=== PATIENT | female | born 1960 | race Caucasian/White ===

== ENCOUNTER → 2017-01-23 | Outpatient (CLI) | payer OTHER ==
[~2017-01-23] MED LIST: ASPI-266 PO; CINN500T PO; CLON0.2T11 PO; COEN100C11 PO; Centrum Silver PO; DULO60CA44 PO; LABE200T24 PO; LISI40TA PO; MELA1CAP9 PO; METH500T3 PO; REDCAP2 PO; TAUR1000 PO; VITAMIN B PO
[2017-01-23 13:18] LABS: ALT/SGPT 64 U/L (12-78); AST/SGOT 40 U/L (15-37); BLOOD UREA NITROGEN 19 mg/dl (7-18); BUN/CREATININE RATIO 20.8 (10-20); CALCIUM 9.1 mg/dl (8.5-10.1); CARBON DIOXIDE 26 mmol/L (21-32); CHLORIDE 106 mmol/L (98-107); CREATININE 0.89 mg/dl (0.60-1.20); GLUCOSE 135 mg/dl (70-99); POTASSIUM 4.1 mmol/L (3.5-5.1); SODIUM 140 mmol/L (136-145)
[2017-01-23 13:35] LABS: ALB/GLOB RATIO 1.5 (0.9-2); ALKALINE PHOSPHATASE 111 U/L (45-117); CHOLESTEROL 240 mg/dl (0-200); CHOLESTEROL/HDL RATIO 4.6; HDL CHOLESTEROL 52 mg/dl; LDL CHOLESTEROL CALCULATED 155 mg/dl; TRIGLYCERIDES 165 mg/dl (0-150); VERY LOW DENSITY LIPOPROT CALC 33 mg/dl
[2017-01-23 14:26] LABS: ESTIMATED AVERAGE GLUCOSE 123 mg/dl; HA1C FLAG Normal (Normal)
== END | disposition home or self-care (01) ==
LOC: C.LABPBG 08:41
PROVIDERS: ATTEND Family Medicine
DX: E11.9 Type 2 diabetes mellitus without complications (principal)

== ENCOUNTER → 2017-04-20 | Outpatient (CLI) | payer OTHER ==
[2017-04-20 13:11] LABS: ALT/SGPT 70 U/L (12-78); AST/SGOT 40 U/L (15-37)
== END | disposition home or self-care (01) ==
LOC: C.LABPBG 11:13
PROVIDERS: ATTEND Nurse Practitioner Adult Health
DX: E78.5 Hyperlipidemia, unspecified (principal)

== ENCOUNTER → 2017-04-24 | Outpatient (CLI) | payer OTHER ==
[~2017-04-24] VITALS: Ht 168.9 cm; Wt 93.8 kg
[2017-04-24 14:01] VITALS: BP 113/73; PULSE 76; Ht 168.9 cm; Wt 93.8 kg
== END | disposition home or self-care (01) ==
LOC: C.NEUR 13:14
PROVIDERS: ATTEND Physician Assistant
DX: G47.33 Obstructive sleep apnea (adult) (pediatric) (principal)

== ENCOUNTER → 2017-04-24 | Outpatient (CLI) | payer OTHER ==
--- NOTE | 2017-05-04 16:12 | MAMMOGRAPHY REPORT ---
BILATERAL DIGITAL SCREENING MAMMOGRAM TOMOSYNTHESIS WITH CAD: 04/24/2017 CLINICAL HISTORY: Routine screening. Patient has no complaints. TECHNIQUE: Breast tomosynthesis in addition to standard 2D mammography was performed. Current study was also evaluated with a Computer Aided Detection (CAD) system. COMPARISON: Prior outside screen film mammograms dated 12/08/2006, 08/22/2004, 02/24/2003. BREAST COMPOSITION: There are scattered areas of fibroglandular density in both breasts. FINDINGS: No suspicious masses, calcifications, or areas of architectural distortion are noted in ei ther breast. There has been no significant interval change compared to prior exams. Scattered bilate ral benign-appearing calcifications are noted. Small cluster of punctate benign-appearing calcificat ions in the right lower inner quadrant are shown to be located within the skin on the tomosynthesis i mages and are consistent with benign dermal calcifications. IMPRESSION: ACR BI-RADS CATEGORY 2: BENIGN There is no mammographic evidence of malignancy. A 1 year screening mammogram is recommended. The pa tient will receive written notification of the results. Approximately 10% of breast cancers are not detected with mammography. A negative mammographic report should not delay biopsy if a clinically suggestive mass is present. Deja Fink M.D. ah/:05/04/2017 16:04:00 [employer]: Shelia GUADALUPE)(Fredrick), [facility] letter sent: Normal 1/2 BI-RADS Code: ACR BI-RADS Category 2: Benign
== END | disposition home or self-care (01) ==
LOC: C.MAMM 11:42
PROVIDERS: ATTEND Family Medicine
DX: Z12.31 Encounter for screening mammogram for malignant neoplasm of breast (principal)

== ENCOUNTER → 2017-10-27 | Outpatient (CLI) | payer OTHER ==
[2017-10-27 12:41] LABS: ALBUMIN 4.1 gm/dl (3.4-5.0); ALT/SGPT 42 U/L (12-78); BLOOD UREA NITROGEN 16 mg/dl (7-18); CALCIUM 9.6 mg/dl (8.5-10.1); CARBON DIOXIDE 27 mmol/L (21-32); CHOLESTEROL 178 mg/dl (0-200); CREATININE 1.01 mg/dl (0.60-1.20); GLUCOSE 147 mg/dl (70-99); POTASSIUM 4.1 mmol/L (3.5-5.1); SODIUM 138 mmol/L (136-145)
[2017-10-27 12:46] LABS: ALKALINE PHOSPHATASE 86 U/L (45-117); AST/SGOT 27 U/L (15-37); HEMOGLOBIN A1C 6.1 % (4.5-5.6); LDL CHOLESTEROL CALCULATED 98 mg/dl; TOTAL PROTEIN 6.7 gm/dl (6.4-8.2)
[2017-10-27 13:45] LABS: CREATININE RANDOM URINE 31.2 mg/dl
== END | disposition home or self-care (01) ==
LOC: C.LABPBG 08:30
PROVIDERS: ATTEND Family Medicine
DX: E11.9 Type 2 diabetes mellitus without complications (principal)

== ENCOUNTER → 2018-04-29 | Outpatient (CLI) | payer OTHER ==
[~2018-04-29] VITALS: Ht 168.9 cm; Wt 95.0 kg
[~2018-04-29] MED LIST changes: -LABE200T24 PO; +LABE200T5 PO
[2018-04-29 15:16] VITALS: BP 159/80; PULSE 82; Ht 168.9 cm; Wt 95.0 kg
== END | disposition home or self-care (01) ==
LOC: C.NEUR 14:08
PROVIDERS: ATTEND Physician Assistant
DX: G47.33 Obstructive sleep apnea (adult) (pediatric) (principal)

== ENCOUNTER 2022-03-23 20:00 | Observation (INO) ==
--- NOTE | 2022-03-23 20:12 | Emergency Department Note ---
History of Present Illness General Chief complaint: Stroke Alert Stated complaint: STROKE ALERT Source: patient, family and EMS Mode of arrival: EMS Limitations: no limitations History of Present Illness This patient is a 61-year-old female who is a history of hypertension and diabetes, comes in after having an episode of confusion that started about an hour and 15 minutes or so prior to arrival. This is per her mother. I talked to EMS prior to arrival they said she was very amnestic to any new memories. That is new. Besides that she was otherwise asymptomatic she is of a mild headache. She denies any focal numbness weakness no fall or trauma no fever chills no neck pain chest pain shortness of breath or abdominal pain. I did talk to paramedics prior to arrival her blood pressure was high although she has chronic high blood pressure. I did call a stroke alert. The patient denies any allergy except for Ceclor. Looking through the chart she has had CAT scan with contrast before. Blood sugar was checked on route and it was normal Home Medications Medication Instructions Recorded Confirmed Type coenzyme Q10 100 mg capsule 100 mg PO QAM cap 07/01/19 03/23/22 History chromium 200 mcg tablet 200 mcg PO QAM 11/09/19 03/23/22 History cinnamon bark 500 mg capsule 1,500 mg PO QAM cap 11/09/19 03/23/22 History (Cinnamon) CPAP Supplies #1 ea 07/26/20 03/23/22 Rx aspirin 81 mg tablet,delayed 81 mg PO QAM 11/20/20 03/23/22 History release (Adrien Low Dose Aspirin) dicyclomine 20 mg tablet 20 mg PO QAM tab 06/14/21 03/23/22 History hyoscyamine sulfate 0.125 mg tablet 0.125 mg PO DAILY PRN tab 06/14/21 03/23/22 History Amitiza 8 mcg capsule 8 mcg PO BID 90 Days #180 cap NS 08/27/21 03/23/22 Rx (lubiprostone) oxybutynin chloride 5 mg 5 mg PO QAM #90 tab 11/01/21 03/23/22 Rx tablet,extended release 24 hr spironolactone 50 mg tablet 25 mg PO QAM #90 tab 11/01/21 03/23/22 Rx clonidine 0.3 mg/24 hr weekly 1 patch TRANSDERMAL WEEKLY #12 ea 11/07/21 03/23/22 Rx transdermal patch empagliflozin 25 mg tablet 25 mg PO QAM #90 tab 12/13/21 03/23/22 Rx atorvastatin 40 mg tablet 40 mg PO HS #90 tab 12/23/21 03/23/22 Rx labetalol 200 mg tablet 600 mg PO BID #540 tab 12/23/21 03/23/22 Rx metformin 500 mg tablet,extended 500 mg PO QPM #90 tab 12/23/21 03/23/22 Rx release 24 hr alprazolam 0.5 mg tablet 0.5 mg PO QPM #90 tab 01/07/22 03/23/22 Rx duloxetine 60 mg capsule,delayed 60 mg PO QAM #90 cap 01/13/22 03/23/22 Rx release pantoprazole 40 mg tablet,delayed 40 mg PO DAILY #30 tab 02/07/22 03/23/22 Rx release (Protonix) lisinopril 40 mg tablet 40 mg PO QAM #90 tab 02/17/22 03/23/22 Rx Allergies Allergy/AdvReac Type Severity Reaction Status Date / Time chlorthalidone Allergy Intermediate Forceful Verified 03/23/22 20:12 urination and pain in legs. dulaglutide [From Trulicity] Allergy Intermediate "colitis Verified 03/23/22 20:12 attack" amlodipine Allergy Mild Rash Verified 03/23/22 20:12 latex Allergy Mild itchy Verified 03/23/22 20:12 cefaclor AdvReac Intermediate GI SYMPTOMS Verified 03/23/22 20:12 Past Med/Surg History Medical History Adrenal adenoma Under observation 19mm left adrenal nodule per December 2020 abdomen/pelvic CT scan Anemia Dyslipidemia Dysphagia Improved/relieved Following with GI, normal esophagus per EGD report 07/30/2021, gastritis biopsied/had esophageal stretching Hearing difficulty No hearing aids needed at this time Hepatitis, autoimmune In remission per pt since approx 2013, follows with [facility] History of CVA (cerebrovascular accident) (06/2019) Mild, no deficits--no neurologist Had some memory issues,/facial droop> went to therapy, no further issues Irritable bowel syndrome (IBS) Lumbar degenerative disc disease Lumbar spinal stenosis Obstructive sleep apnea CPAP Pulmonary emphysema (05/01/13) Renal cyst PRN f/u with [facility] Resistant hypertension Stress incontinence in female Type 2 diabetes mellitus Glucose controlled Surgical History History of appendectomy History of colonoscopy History of esophagogastroduodenoscopy (EGD) History of surgical removal of ganglion cyst History of tooth extraction History of wisdom tooth extraction S/P cholecystectomy (~1991) with appy S/P manipulation of deviated nasal septum (~1981) Family History Mother Cervical cancer Atrial fibrillation Breast cancer Hypertension Father Hypertension Brother Diabetes Kidney disease Myocardial infarction Hypertension Other No family history of adverse response to anesthesia Denies family history of Ovarian cancer Prostate cancer Colorectal cancer Social History Smoking Status: Former smoker Tobacco Type: Cigarettes Age Started Using Tobacco: 19; Age Quit Using Tobacco: 49; Cigarettes Per Day: vaps periodically; Second Hand Exposure: No; Hx Alcohol Use: Yes Alcohol Intake Frequency: Monthly or Less Hx Substance Use: No Preferred Language: Upper Sorbian Communication Ability: Effective Visual Impairment: No Limitations Hearing Ability: Hard of Hearing Pipe Racker Required: No Beliefs That Will Affect Care: None marital status: Single Current Living Situation: Family Current Living Situation Comment: Lives with mom current occupational status: employed Feels Safe at Home: Yes caffeine: Yes Dental Care, Regularly: Yes Physical Activity Frequency: 5-6 Times per Week Seatbelt Use: always Sunscreen Use: Yes Assistive Devices: CPAP and Glasses Review of Systems A total of 10 systems reviewed and were otherwise negative Physical Exam Vital Signs Vital Signs - 24 hr 03/23/22 20:30 03/23/22 20:37 03/23/22 20:40 Temperature 37.2 C 37.2 C Temperature Source Oral Oral Pulse Rate 97 H Pulse Rate [Apical] 99 H Pulse Rhythm Regular Pulse Rhythm [Apical] Regular Pulse Strength Normal Pulse Strength [Apical] Normal Respiratory Rate 18 18 Respiratory Effort / Characteristics Non-Labored Spontaneous Non-Labored Spontaneous Respiratory Depth Normal Normal Respiratory Pattern Regular Regular Blood Pressure 201/115 H Blood Pressure [Right Arm] 187/124 H Blood Pressure Mean 143 Blood Pressure Mean [Right Arm] 145 Blood Pressure Position Semi-fowlers Blood Pressure Position [Right Arm] Semi-fowlers Pulse Oximetry 94 94 94 Oxygen Delivery Method Room Air Room Air Room Air Oxygen Flow Rate 0 Sepsis Recent Fever Within 48 Hours No Sepsis New/Unexplained Change in Mental Status Yes Sepsis Action Taken by Nursing No Action Required 03/23/22 22:45 03/23/22 23:04 Temperature Temperature Source Pulse Rate Pulse Rate [Apical] 95 H 97 H Pulse Rhythm Pulse Rhythm [Apical] Regular Regular Pulse Strength Pulse Strength [Apical] Normal Normal Respiratory Rate 16 16 Respiratory Effort / Characteristics Non-Labored Spontaneous Non-Labored Spontaneous Respiratory Depth Normal Normal Respiratory Pattern Regular Regular Blood Pressure Blood Pressure [Right Arm] 204/119 H 171/129 H Blood Pressure Mean Blood Pressure Mean [Right Arm] 147 143 Blood Pressure Position Blood Pressure Position [Right Arm] Semi-fowlers Semi-fowlers Pulse Oximetry 96 96 Oxygen Delivery Method Room Air Room Air Oxygen Flow Rate Sepsis Recent Fever Within 48 Hours Sepsis New/Unexplained Change in Mental Status Sepsis Action Taken by Nursing General: Well developed well nourished middle-age female who is alert to person place and partial date. In no acute distress, breathing comfortably on room air. Normal speech. She does tell me she has memory issues. HEENT: Normal cephalic atraumatic. Pupils are equal round and reactive to light. Extraocular movements are intact. Oropharynx is pink with moist mucous membranes. No swelling of the mouth lips or tongue. Neck: Supple with a midline trachea. No meningeal signs or stiffness, no JVD or bruits. No Stridor. Chest: Clear to auscultation bilaterally. No wheezes or rhonchi. No increased work of breathing. Heart: Regular rate and rhythm without murmurs or gallops. Abdomen: Soft nontender, nondistended without rebound guarding or rigidity. Extremities: No cyanosis clubbing or edema. No calf tenderness or assymetry Spine/Back. Non tender to palpation. No CVA tenderness Skin: Good turgor without rashes. Neurologic exam: Cranial nerves two through 12 are intact. Motor and sensation are intact and symmetrical throughout. Course Administered Medications Nicardipine HCl 25 mg/ Sodium (Chloride) 250 mls @ 0 mls/hr IV .Q0M [facility]; Protocol Stop: 04/22/22 20:44 Last Titration: 03/23/22 21:26 Dose: 0 mg/hr, 0 mls/hr Documented by: [id number] Titration: 03/23/22 21:06 Dose: 2.5 mg/hr, 25 mls/hr Documented by: [id number] Admin: 03/23/22 20:54 Dose: 5 mg/hr, 50 mls/hr Documented by: [id number] Cosigned by: [id number] Discontinued Medications Ioversol (Optiray 320 125ml) 119 ml IV ONCE ONE Stop: 03/23/22 20:20 Last Admin: 03/23/22 20:19 Dose: 119 ml Documented by: [id number] Medical Decision Making Differential Diagnosis Stroke, TIA, transient global amnesia, hypertensive emergency, electrolyte or metabolic abnormality, anemia Medical Records Attestation: I reviewed the patient's medical records. Home Medications Current Medication List: was personally reviewed by me Laboratory Data Attestation: I reviewed the patient's lab results. Result diagrams: 03/23/22 20:33 03/23/22 20:33 Lab Results 03/23/22 03/23/22 03/23/22 Range/Units 20:20 20:29 20:33 WBC 10.71 (4.8-10.8) K/uL RBC 4.13 L (4.2-5.4) M/uL Hgb 13.7 (12.0-16.0) g/dL Hct 38.8 (37-47) % MCV 93.9 (80-100) fL MCH 33.2 (25-34) pg MCHC 35.3 (32-36) g/dL RDW Std Deviation 45.3 (36.4-46.3) fL RDW Coeff of Timoteo 13.2 (11.5-14.5) % Plt Count 359 (130-400) K/uL MPV 10.2 (7.4-10.4) fL Immature Gran % (Auto) 0.5 % Neut % (Auto) 71.4 % Lymph % (Auto) 19.4 % [place] % (Auto) 6.5 % Eos % (Auto) 1.9 % Baso % (Auto) 0.3 % Neut # (Auto) 7.65 H (1.4-6.5) K/uL Lymph # (Auto) 2.08 (1.2-3.4) K/uL [place] # (Auto) 0.70 H (0.11-0.59) K/uL Eos # (Auto) 0.20 (0-0.5) K/uL Baso # (Auto) 0.03 (0-0.2) K/uL Immature Gran # (Auto) 0.05 H (0.00-0.02) K/uL PT (9.0-12.0) Seconds INR (0.9-1.1) APTT (21.0-31.0) Seconds PTT Ratio Sodium (136-145) mmol/L Potassium (3.5-5.1) mmol/L Chloride (98-107) mmol/L Carbon Dioxide (21-32) mmol/L Anion Gap (3-11) BUN (6-23) mg/dl Creatinine (0.6-1.2) mg/dl Est Cr Clr Drug Dosing ml/min Est GFR ( Amer) ml/min Est GFR (Non-Af Amer) ml/min BUN/Creatinine Ratio (10-20) Glucose (70-99(Fasting)) mg/dl POC Glucose 167 H (70-99) mg/dl Lactate (0.4-2.0) mmol/L Calcium (8.5-10.1) mg/dl Magnesium (1.7-2.4) mg/dl Total Bilirubin (0.2-1.0) mg/dl AST (13-39) U/L ALT (7-52) U/L Alkaline Phosphatase (34-104) U/L Troponin I High Sens (0-14) pg/ml Total Protein (6.0-8.3) gm/dl Albumin (3.4-5.0) gm/dl Globulin (2.5-4.0) gm/dl Albumin/Globulin Ratio (0.9-2) Urine Color Yellow Urine Appearance Clear (Clear) Urine pH 7.5 (4.5-7.5) Ur Specific [place] 1.007 (1.000-1.030) Urine Protein Negative (Negative) Urine Glucose (UA) 2+ H (Negative) Urine Ketones Negative (Negative) Urine Blood Negative (Negative) Urine Nitrite Negative (Negative) Urine Bilirubin Negative (Negative) Urine Urobilinogen Negative (Negative) Ur Leukocyte Esterase Negative (Negative) SARS-CoV-2, RNA, NAAT (NEGATIVE) 03/23/22 03/23/22 03/23/22 Range/Units 20:33 20:33 20:35 WBC (4.8-10.8) K/uL RBC (4.2-5.4) M/uL Hgb (12.0-16.0) g/dL Hct (37-47) % MCV (80-100) fL MCH (25-34) pg MCHC (32-36) g/dL RDW Std Deviation (36.4-46.3) fL RDW Coeff of Timoteo (11.5-14.5) % Plt Count (130-400) K/uL MPV (7.4-10.4) fL Immature Gran % (Auto) % Neut % (Auto) % Lymph % (Auto) % [place] % (Auto) % Eos % (Auto) % Baso % (Auto) % Neut # (Auto) (1.4-6.5) K/uL Lymph # (Auto) (1.2-3.4) K/uL [place] # (Auto) (0.11-0.59) K/uL Eos # (Auto) (0-0.5) K/uL Baso # (Auto) (0-0.2) K/uL Immature Gran # (Auto) (0.00-0.02) K/uL PT 10.8 (9.0-12.0) Seconds INR 1.0 (0.9-1.1) APTT 30.1 (21.0-31.0) Seconds PTT Ratio 1.1 Sodium 135 L (136-145) mmol/L Potassium 3.9 (3.5-5.1) mmol/L Chloride 102 (98-107) mmol/L Carbon Dioxide 22 (21-32) mmol/L Anion Gap 11 (3-11) BUN 18 (6-23) mg/dl Creatinine 1.08 (0.6-1.2) mg/dl Est Cr Clr Drug Dosing 62.6 ml/min Est GFR ( Amer) 63.7 ml/min Est GFR (Non-Af Amer) 55.0 ml/min BUN/Creatinine Ratio 16.7 (10-20) Glucose 156 H (70-99(Fasting)) mg/dl POC Glucose (70-99) mg/dl Lactate (0.4-2.0) mmol/L Calcium 9.8 (8.5-10.1) mg/dl Magnesium 1.9 (1.7-2.4) mg/dl Total Bilirubin 1.0 (0.2-1.0) mg/dl AST 25 (13-39) U/L ALT 26 (7-52) U/L Alkaline Phosphatase 116 H (34-104) U/L Troponin I High Sens 24.4 H (0-14) pg/ml Total Protein 7.0 (6.0-8.3) gm/dl Albumin 4.9 (3.4-5.0) gm/dl Globulin 2.1 L (2.5-4.0) gm/dl Albumin/Globulin Ratio 2.3 H (0.9-2) Urine Color Urine Appearance (Clear) Urine pH (4.5-7.5) Ur Specific [place] (1.000-1.030) Urine Protein (Negative) Urine Glucose (UA) (Negative) Urine Ketones (Negative) Urine Blood (Negative) Urine Nitrite (Negative) Urine Bilirubin (Negative) Urine Urobilinogen (Negative) Ur Leukocyte Esterase (Negative) SARS-CoV-2, RNA, NAAT NEGATIVE (NEGATIVE) 03/23/22 Range/Units 20:43 WBC (4.8-10.8) K/uL RBC (4.2-5.4) M/uL Hgb (12.0-16.0) g/dL Hct (37-47) % MCV (80-100) fL MCH (25-34) pg MCHC (32-36) g/dL RDW Std Deviation (36.4-46.3) fL RDW Coeff of Timoteo (11.5-14.5) % Plt Count (130-400) K/uL MPV (7.4-10.4) fL Immature Gran % (Auto) % Neut % (Auto) % Lymph % (Auto) % [place] % (Auto) % Eos % (Auto) % Baso % (Auto) % Neut # (Auto) (1.4-6.5) K/uL Lymph # (Auto) (1.2-3.4) K/uL [place] # (Auto) (0.11-0.59) K/uL Eos # (Auto) (0-0.5) K/uL Baso # (Auto) (0-0.2) K/uL Immature Gran # (Auto) (0.00-0.02) K/uL PT (9.0-12.0) Seconds INR (0.9-1.1) APTT (21.0-31.0) Seconds PTT Ratio Sodium (136-145) mmol/L Potassium (3.5-5.1) mmol/L Chloride (98-107) mmol/L Carbon Dioxide (21-32) mmol/L Anion Gap (3-11) BUN (6-23) mg/dl Creatinine (0.6-1.2) mg/dl Est Cr Clr Drug Dosing ml/min Est GFR ( Amer) ml/min Est GFR (Non-Af Amer) ml/min BUN/Creatinine Ratio (10-20) Glucose (70-99(Fasting)) mg/dl POC Glucose (70-99) mg/dl Lactate 1.1 (0.4-2.0) mmol/L Calcium (8.5-10.1) mg/dl Magnesium (1.7-2.4) mg/dl Total Bilirubin (0.2-1.0) mg/dl AST (13-39) U/L ALT (7-52) U/L Alkaline Phosphatase (34-104) U/L Troponin I High Sens (0-14) pg/ml Total Protein (6.0-8.3) gm/dl Albumin (3.4-5.0) gm/dl Globulin (2.5-4.0) gm/dl Albumin/Globulin Ratio (0.9-2) Urine Color Urine Appearance (Clear) Urine pH (4.5-7.5) Ur Specific [place] (1.000-1.030) Urine Protein (Negative) Urine Glucose (UA) (Negative) Urine Ketones (Negative) Urine Blood (Negative) Urine Nitrite (Negative) Urine Bilirubin (Negative) Urine Urobilinogen (Negative) Ur Leukocyte Esterase (Negative) SARS-CoV-2, RNA, NAAT (NEGATIVE) Imaging Data Attestation: I personally reviewed and interpreted this imaging study as follows: My Impression: CT of the head no acute hemorrhage or mass-effect seen Radiologist's Impression: Stat readCT headno intracranial hemorrhage, mass-effect or edema. No skull fracture. Sinus and mastoid air cells are clear. CT angio headpatent intracranial circulation. No aneurysm. CTA Neck- No dissection, hemodynamically significant stenosis, or occlusion. ECG Data Attestation: I personally reviewed and interpreted this ECG as follows: Indication: + weakness MDM Narrative This patient comes in as described above she was a stroke alert. She has confusion to more recent events and short-term memory. She was taken straight to CAT scan where we did a CT of the head as well as CT of the head and neck. She was then placed back in room number a 1. I did see her on route to the CAT scan as EMS brought her in so I could get things going. I did talk to Dr. Leonarda brice from the stroke alert teleneurology team. She did not recommend TNK if it was just a memory issue but did recommend antiplatelet medication and admission for MRI vessel imaging and to monitor the blood pressure. Besides her memory issues she has no neurologic deficits. She has normal long-term memory. CAT scan of the head with CTA of the head neck were unremarkable. Her EKG she does not show any ischemic changes or ectopy. Her initial blood pressure was elevated at 201/115. I did talk to our pharmacist about nicardipine drip. The patient has a rash listed for amlodipine but she felt that it was safe to give her nicardipine. I started 5 mg/hg IV nicardipine as per protocol as a repeat blood pressure was 187/124. She is on 5 mg of nicardipine an hour. I did talk to the nurse and we want to lower the blood pressure slowly and just a little bit and see if she has any improvement. The patient's blood pressure did come down and was in the 140s systolic and I was concerned he was getting too low so we started backing off and actually turned off. She had no significant change in her symptoms so I do not think is likely hypertensive encephalopathy. The blood pressure did start coming back more elevated again and we talked to admitting team and they are going to address it as they have already seen her. She seems to remember more and is slowly improving here so I think this is most likely transient global amnesia however she will need a full neurologic work-up. She will be admitted for this. The [facility] saw her in the in ER Continuous gambling monitor: Orders placed in the EMR for continuous cardiac monitoring. Upon my interpretation the patient was noted to be in normal sinus rhythm rate of 90. Impression & Plan Acute focal neurological deficit, Amnesia, Acute confusion, Lab test negative for COVID-19 virus, Hypertension Discharge Plan Visit Data Chief Complaint: Stroke Alert Stated Complaint: STROKE ALERT ED Provider: Declan Braun Discharge Problem: Acute focal neurological deficit, Amnesia, Acute confusion, Lab test negative for COVID-19 virus, Hypertension Forms Stand Alone Forms: My [facility] Prescriptions Prescriptions: No Action lubiprostone [Amitiza] 8 mcg capsule 8 mcg PO BID 90 Days Qty: 180 RF: 3 spironolactone 50 mg tablet 25 mg PO QAM Qty: 90 RF: 3 oxybutynin chloride 5 mg tablet extended release 24hr 5 mg PO QAM Qty: 90 RF: 3 clonidine 0.3 mg/24 hr patch weekly 1 patch transdermal WEEKLY Qty: 12 RF: 3 atorvastatin 40 mg tablet 40 mg PO HS Qty: 90 RF: 3 labetalol 200 mg tablet 600 mg PO BID Qty: 540 RF: 1 metformin 500 mg tablet extended release 24 hr 500 mg PO QPM Qty: 90 RF: 3 alprazolam 0.5 mg tablet 0.5 mg PO QPM Qty: 90 RF: 0 duloxetine 60 mg capsule,delayed release(DR/EC) 60 mg PO QAM Qty: 90 RF: 3 pantoprazole [Protonix] 40 mg tablet,delayed release (DR/EC) 40 mg PO DAILY Qty: 30 RF: 2 lisinopril 40 mg tablet 40 mg PO QAM Qty: 90 RF: 1 aspirin [Adrien Low Dose Aspirin] 81 mg tablet,delayed release (DR/EC) 81 mg PO QAM RF: 0 Jardiance 25 mg tablet 25 mg PO QAM Qty: 90 RF: 1 (DME) CPAP Supplies Misc See Rx Instructions .ROUTE .MEDSUPPLY Qty: 1 RF: 0 hyoscyamine sulfate 0.125 mg tablet 0.125 mg PO DAILY PRN (Reason: spasms) RF: 0 dicyclomine 20 mg tablet 20 mg PO QAM RF: 0 coenzyme Q10 100 mg capsule 100 mg PO QAM RF: 0 cinnamon bark [Cinnamon] 500 mg capsule 1,500 mg PO QAM RF: 0 chromium 200 mcg tablet 200 mcg PO QAM RF: 0 Referrals Referrals: Ree Cotton DO [Primary Care Provider] - Discharge Problem: Hypertension Qualifiers: Hypertension type: unspecified Qualified Code(s): I10 - Essential (primary) hypertension
[2022-03-23] MEDS ORDERED: OPTIRAY 320 125ml IV ONE (20:19)
[2022-03-23] MEDS ORDERED: STAT IV Infusion **Titration per Protocol STA (20:34)
[2022-03-23] MEDS ORDERED: niCARdipine 25 MG in SODIUM CHLORIDE 0.9% 240 ML IV SCH (20:45)
[2022-03-23 20:49] LABS: Basophils # (auto) 0.03 K/uL (0-0.2); Basophils % (auto) 0.3 %; Eosinophils % (auto) 1.9 %; Hematocrit (blood only) 38.8 % (37-47); Hemoglobin 13.7 g/dL (12.0-16.0); Immature Granulocytes # (auto) 0.05 K/uL (0.00-0.02); Immature Granulocytes % (auto) 0.5 %; Lymphocytes # (auto) 2.08 K/uL (1.2-3.4); Lymphocytes % (auto) 19.4 %; Mean Corpuscular Hemoglobin 33.2 pg (25-34); Mean Corpuscular Hgb Conc 35.3 g/dL (32-36); Mean Corpuscular Volume 93.9 fL (80-100); Mean Platelet Volume 10.2 fL (7.4-10.4); Monocytes % (auto) 6.5 %; Neutrophils # (auto) 7.65 K/uL (1.4-6.5); Neutrophils % (auto) 71.4 %; Platelet Count 359 K/uL (130-400); RDW Coefficient of Variation 13.2 % (11.5-14.5); RDW Standard Deviation 45.3 fL (36.4-46.3); Red Blood Count 4.13 M/uL (4.2-5.4); White Blood Count 10.71 K/uL (4.8-10.8)
[2022-03-23 20:58] LABS: Partial Thromboplastin Ratio 1.1; Partial Thromboplastin Time 30.1 Seconds (21.0-31.0); Prothrombin Time 10.8 Seconds (9.0-12.0)
[2022-03-23 21:10] LABS: Albumin Globulin Ratio 2.3 (0.9-2); Albumin Level 4.9 gm/dl (3.4-5.0); BUN Creatinine Ratio 16.7 (10-20); Calcium 9.8 mg/dl (8.5-10.1); Creatinine Clr Calc Pharmacy 62.6 ml/min; Est GFR (African American) 63.7 ml/min; Globulin 2.1 gm/dl (2.5-4.0); Magnesium 1.9 mg/dl (1.7-2.4); Potassium 3.9 mmol/L (3.5-5.1)
[2022-03-23 21:13] LABS: Troponin I High Sensitivity 24.4 pg/ml (0-14)
[2022-03-23 21:19] LABS: Appearance Urine Clear (Clear); Bilirubin Urine Negative (Negative); Blood Urine Negative (Negative); Color Urine Yellow; Glucose Urine UA 2+ (Negative); Ketones Urine Negative (Negative); Leukocyte Esterase Urine Negative (Negative); Nitrite Urine Negative (Negative); Protein Urine Negative (Negative); Specific Gravity Urine 1.007 (1.000-1.030); Urobilinogen Urine Negative (Negative); pH Urine 7.5 (4.5-7.5)
--- NOTE | 2022-03-23 22:06 | History & Physical Report ---
Date of Service March 23, 2022 Assessment & Plan (1) AMS (altered mental status): Plan: Angie Kingsley is a 61-year-old female with past medical history of past CVA, anxiety/depression, IBS, hyperlipidemia, hypertension, DM 2, GERD, SAKINA, autoimmune hepatitis who presented to the ED via EMS due to AMS/confusion/forgetfulness. AMS/confusion/amnesia Work-up so far negative for acute stroke as evidenced by head CT and head/neck CTA She does take Xanax and multiple anticholinergic medications, which could cause altered mental status/confusion will hold these at this time Will order MRI brain to evaluate for any structural abnormalities and more definitively rule out stroke Per [facility] recommendations, will load with aspirin ordered 243 mg additional to her daily 81 mg Continue daily baby aspirin thereafter Continue atorvastatin BP control as below Lyme, Babesia, Anaplasma work-up ordered Neurology consulted Admit for observation to telemetry PT/OT/speech N.p.o. until dysphagia screen cleared Hypertension history of resistant hypertension with renal artery stenosis per chart review Continue home clonidine TD patch, labetalol twice daily, lisinopril daily, spironolactone daily Significantly hypertensive in ED requiring nicardipine drip, which was then discontinued due to blood pressure lowering too quickly After discontinuing nicardipine drip, patient's BP did start to increase Will monitor and administer as needed medications for blood pressure control if consistently above 220/110 DM2 Hold home diabetes regimen Basal and SSI insulin while admitted IBS Continue home Amitiza Will hold home hyoscyamine & dicyclomine Stress urinary incontinence Will hold home oxybutynin SAKINA CPAP at bedtime ordered GERD Continue home pantoprazole 40 mg daily DVT prophylaxis: SCDs, no chemoprophylaxis at this time until further stroke work-up completed Diet: N.p.o. until dysphagia screen cleared Dispo: Admit for observation to telemetry CODE STATUS: Full, patient able to verbalize as such when asked directly about her wishes her current mental status could indicate a need for rediscussion once improved (2) IBS (irritable bowel syndrome): (3) History of CVA (cerebrovascular accident): (4) Dyslipidemia: (5) Obstructive sleep apnea: (6) Resistant hypertension: (7) Type 2 diabetes mellitus: (8) Stress incontinence in female: History of Present Illness Primary Care Provider: Ree Cotton DO Angie Kingsley is a 61-year-old female with past medical history of past CVA, anxiety/depression, IBS, hyperlipidemia, hypertension, DM 2, GERD, SAKINA, autoimmune hepatitis who presented to the ED via EMS due to AMS/confusion/forgetfulness. About 1 hour and 15 minutes prior to ED arrival, patient's mother had noticed that patient was confused. She has been having difficulty with short term memory seemingly for this period of time. Patient denies headache, dizziness, vision changes, weakness, numbness,, fever, chills, neck pain, chest pain, nausea, vomiting, shortness of breath, cough, diarrhea, rashes, joint pains. Patient is unable to recall whether she had any falls at home, but states she does not have pain anywhere and there are no obviously visible signs of trauma. She cannot remember whether she lost consciousness. Her long-term memory is i ntact, she is able to discuss her medical history. However, she states she is unable to remember anything after [place] Day at this time. On arrival to ED, blood pressure was found to be elevated to 200s over 110s. She was started on nicardipine drip in ED for blood pressure control her blood pressure then decreased to 150s over 80s without any change in her mental status at which point nicardipine drip was discontinued. Patient had CT head, which showed no acute intracranial findings. CTA head and neck were also unremarkable. Lab work largely unremarkable, except for mildly elevated high- sensitivity troponin of 24.4. EKG did not show any obvious signs of ischemia and she consistently denies chest pain, palpitations, shortness of breath. ED provider spoke with [facility] who recommended loading patient with antiplatelet medication, did not recommend thrombolysis at this time. Recommended admission for MRI imaging and to monitor blood pressure. Upon my evaluation, patient remains very forgetful. States she does not remember anything since the beginning of March. Repeatedly asks what date it is, even within seconds of being told the information. She continues to deny headache, nausea, vomiting, dizziness, vision changes, chest pain, shortness of breath, palpitations, neuro deficits, weakness, rashes, joint pains, abdominal pain. Allergies Allergy/AdvReac Type Severity Reaction Status Date / Time chlorthalidone Allergy Intermediate Forceful Verified 03/23/22 20:12 urination and pain in legs. dulaglutide [From [facility]] Allergy Intermediate "colitis Verified 03/23/22 20:12 attack" amlodipine Allergy Mild Rash Verified 03/23/22 20:12 latex Allergy Mild itchy Verified 03/23/22 20:12 cefaclor AdvReac Intermediate GI SYMPTOMS Verified 03/23/22 20:12 Home Medications Medication Instructions Recorded Confirmed Type coenzyme Q10 100 mg capsule 100 mg PO QAM cap 07/01/19 03/23/22 History chromium 200 mcg tablet 200 mcg PO QAM 11/09/19 03/23/22 History cinnamon bark 500 mg capsule 1,500 mg PO QAM cap 11/09/19 03/23/22 History (Cinnamon) CPAP Supplies #1 ea 07/26/20 03/23/22 Rx aspirin 81 mg tablet,delayed 81 mg PO QAM 11/20/20 03/23/22 History release (Adrien Low Dose Aspirin) dicyclomine 20 mg tablet 20 mg PO QAM tab 06/14/21 03/23/22 History hyoscyamine sulfate 0.125 mg tablet 0.125 mg PO DAILY PRN tab 06/14/21 03/23/22 History Amitiza 8 mcg capsule 8 mcg PO BID 90 Days #180 cap NS 08/27/21 03/23/22 Rx (lubiprostone) oxybutynin chloride 5 mg 5 mg PO QAM #90 tab 11/01/21 03/23/22 Rx tablet,extended release 24 hr spironolactone 50 mg tablet 25 mg PO QAM #90 tab 11/01/21 03/23/22 Rx clonidine 0.3 mg/24 hr weekly 1 patch TRANSDERMAL WEEKLY #12 ea 11/07/21 03/23/22 Rx transdermal patch empagliflozin 25 mg tablet 25 mg PO QAM #90 tab 12/13/21 03/23/22 Rx atorvastatin 40 mg tablet 40 mg PO HS #90 tab 12/23/21 03/23/22 Rx labetalol 200 mg tablet 600 mg PO BID #540 tab 12/23/21 03/23/22 Rx metformin 500 mg tablet,extended 500 mg PO QPM #90 tab 12/23/21 03/23/22 Rx release 24 hr alprazolam 0.5 mg tablet 0.5 mg PO QPM #90 tab 01/07/22 03/23/22 Rx duloxetine 60 mg capsule,delayed 60 mg PO QAM #90 cap 01/13/22 03/23/22 Rx release pantoprazole 40 mg tablet,delayed 40 mg PO DAILY #30 tab 02/07/22 03/23/22 Rx release (Protonix) lisinopril 40 mg tablet 40 mg PO QAM #90 tab 02/17/22 03/23/22 Rx Past Med/Surg History Medical History Adrenal adenoma Under observation 19mm left adrenal nodule per December 2020 abdomen/pelvic CT scan Anemia Dyslipidemia Dysphagia Improved/relieved Following with GI, normal esophagus per EGD report 07/30/2021, gastritis biopsied/had esophageal stretching Hearing difficulty No hearing aids needed at this time Hepatitis, autoimmune In remission per pt since approx 2013, follows with [facility] History of CVA (cerebrovascular accident) (06/2019) Mild, no deficits--no neurologist Had some memory issues,/facial droop> went to therapy, no further issues Irritable bowel syndrome (IBS) Lumbar degenerative disc disease Lumbar spinal stenosis Obstructive sleep apnea CPAP Pulmonary emphysema (05/01/13) Renal cyst PRN f/u with [facility] Resistant hypertension Stress incontinence in female Type 2 diabetes mellitus Glucose controlled Surgical History History of appendectomy History of colonoscopy History of esophagogastroduodenoscopy (EGD) History of surgical removal of ganglion cyst History of tooth extraction History of wisdom tooth extraction S/P cholecystectomy (~1991) with appy S/P manipulation of deviated nasal septum (~1981) Family History Mother Cervical cancer Atrial fibrillation Breast cancer Hypertension Father Hypertension Brother Diabetes Kidney disease Myocardial infarction Hypertension Other No family history of adverse response to anesthesia Denies family history of Ovarian cancer Prostate cancer Colorectal cancer Social History Smoking Status: Former smoker Tobacco Type: Cigarettes Age Started Using Tobacco: 19; Age Quit Using Tobacco: 49; Cigarettes Per Day: vaps periodically; Second Hand Exposure: No; Hx Alcohol Use: Yes Alcohol Intake Frequency: Monthly or Less Hx Substance Use: No Preferred Language: Italian Communication Ability: Effective Visual Impairment: No Limitations Hearing Ability: Hard of Hearing Assistant Manager Retail Required: No Beliefs That Will Affect Care: None marital status: Single Current Living Situation: Family Current Living Situation Comment: Lives with mom current occupational status: employed Feels Safe at Home: Yes caffeine: Yes Dental Care, Regularly: Yes Physical Activity Frequency: 5-6 Times per Week Seatbelt Use: always Sunscreen Use: Yes Assistive Devices: CPAP and Glasses Review of Systems Review of Systems: All systems reviewed & are unremarkable except as noted in HPI & below Physical Exam Physical Exam: GENERAL: A&Ox1. NAD. HEENT: PERRL, EOMI. Moist mucous membranes. NECK: No JVD. No lymphadenopathy. CHEST/LUNGS: CTAB A/P. No crackles, wheezes, rales, rhonchi. HEART: RRR. No m/g/r. No carotid bruits. ABDOMEN: NT/ND, soft. BS+ x4. EXTREMITIES: No cyanosis, no clubbing, no edema SKIN: Warm and dry. No rashes or lesions. PSYCHIATRIC: No pressured speech, no hallucinations NEUROLOGIC: Confued. No FND. CN II-XII grossly intact. Results & Data Results & Data ([facility]) Vital Signs (Past 12 Hours) Vital Signs Temp Pulse Pulse Resp BP BP Pulse Ox 03/23/22 20:40 94 03/23/22 20:37 37.2 C 99 H 18 187/124 H 94 03/23/22 20:30 37.2 C 97 H 18 201/115 H 94 Supervising Physician Co-Signing Physician Notes Attending addendum: I have physically seen this patient, have supervised the medical residents activities, and agree with the H&P unless as otherwise noted. Assessment and Plan: Amnesia/confusion/headache/stroke alert- CT head negative, CTA head and neck negative. MRI brain ordered Stroke that tPA order set Consult PT/OT/speech/neurology Order echocardiogram Order hypercoagulable work-up Continue aspirin 81 mg for increased to full-strength 324 mg Elevated troponin- The patient will be admitted to telemetry for serial cardiac enzymes, serial EKG's, cardiac rhythm monitoring and a 2-D echocardiogram with Dopplers. Troponin 24.4 on admission Permissive hypertension Diabetes mellitus- Hold metformin, empagliflozin, cinnamon. Place on Accu-Cheks before meals and at bedtime with NovoLog coverage per scale Check hemoglobin A1c Hyperlipidemia- Continue atorvastatin 40 mg at bedtime Check a fasting lipid panel Remaining orders and notations as noted Resident Activity Tracking Resident Involvement: Resident Care Provided Care Provided: Adult Hospital Medicine
[2022-03-23] MEDS ORDERED: METOPROLOL TARTRATE 1 MG/ML VIAL IV STA (23:32)
[2022-03-24] MEDS ORDERED: GLUCOSE 40% GEL 15 GM TUBE PO PRN (00:56)
[2022-03-24] MEDS ORDERED: CARBOHYDRATES FOR HYPOGLYCEMIA PO PRN (00:56)
[2022-03-24] MEDS ORDERED: DC ALL PREVIOUSLY ORDERED DIABETES MEDS ONE (00:56)
[2022-03-24] MEDS ORDERED: GLUCOSE 10 TABS/TUBE PO PRN (00:56)
[2022-03-24] MEDS ORDERED: GLUCAGON FOR INJ 1 MG VIAL SQ PRN (00:56)
[2022-03-24] MEDS ORDERED: ACETAMINOPHEN 325 MG TAB PO PRN (00:56)
[2022-03-24] MEDS ORDERED: ONDANSETRON INJ 2 MG/ML 2 ML VIAL IV PRN (00:56)
[2022-03-24] MEDS ORDERED: DEXTROSE 50% 50 ML SYRINGE IV PRN (00:56)
[2022-03-24] MEDS ORDERED: PHARMACY GLYCEMIC MGMT CONSULT PRN (00:56)
[2022-03-24] MEDS ORDERED: SODIUM CHLORIDE 0.9% 1000ML 1,000 ML IV SCH (00:56)
[2022-03-24] MEDS ORDERED: PHARMACIST DISCHARGE MED REC CONSULT PRN (00:56)
[2022-03-24] MEDS ORDERED: ASPIRIN 81 MG CHEW PO ONE (01:36)
[2022-03-24 01:40] LABS: Lyme Ab IgG w/WB Rflx Negative (Negative); Lyme Ab IgM w/WB Rflx Negative (Negative)
[2022-03-24] MEDS ORDERED: GADOBUTROL 65ML VIAL IV ONE (01:49)
[2022-03-24] MEDS: SODIUM CHLORIDE 0.9% 1000ML 1,000 ML IV SCH ×2 (02:32→11:08)
--- NOTE | 2022-03-24 03:21 | Billing Data ---
Date of Service March 24, 2022 Coding Level of Care Code INT OBSERVATION CARE 70M LVL 3
[2022-03-24] MEDS: INSULIN ASPART PER UNIT SC SCH ×2 (06:01→16:38)
[2022-03-24 06:12] LABS: Basophils # (auto) 0.04 K/uL (0-0.2); Basophils % (auto) 0.4 %; Eosinophils # (auto) 0.12 K/uL (0-0.5); Eosinophils % (auto) 1.2 %; Hematocrit (blood only) 39.9 % (37-47); Hemoglobin 13.5 g/dL (12.0-16.0); Immature Granulocytes # (auto) 0.03 K/uL (0.00-0.02); Immature Granulocytes % (auto) 0.3 %; Lymphocytes # (auto) 2.88 K/uL (1.2-3.4); Lymphocytes % (auto) 28.5 %; Mean Corpuscular Hemoglobin 32.3 pg (25-34); Mean Corpuscular Hgb Conc 33.8 g/dL (32-36); Mean Corpuscular Volume 95.5 fL (80-100); Mean Platelet Volume 9.8 fL (7.4-10.4); Monocytes # (auto) 0.85 K/uL (0.11-0.59); Monocytes % (auto) 8.4 %; Neutrophils # (auto) 6.17 K/uL (1.4-6.5); Neutrophils % (auto) 61.2 %; Platelet Count 342 K/uL (130-400); RDW Coefficient of Variation 13.3 % (11.5-14.5); RDW Standard Deviation 46.3 fL (36.4-46.3); Red Blood Count 4.18 M/uL (4.2-5.4); White Blood Count 10.09 K/uL (4.8-10.8)
[2022-03-24 06:42] LABS: BUN Creatinine Ratio 16.8 (10-20); Chol HDL Ratio 3.3 (0-5); Creatinine Clr Calc Pharmacy 59.8 ml/min; Est GFR (African American) 60.3 ml/min; Potassium 4.1 mmol/L (3.5-5.1)
[2022-03-24 07:45] LABS: Estimated Average Glucose 180 mg/dl; Hemoglobin A1C 7.9 % (4.5-5.6)
--- NOTE | 2022-03-24 07:51 | CT Scan Report ---
CT angio head w con, CT head/brain wo con, CT angio neck with con CLINICAL HISTORY: Stroke Like Symptoms TECHNIQUE: Contiguous axial CT images of the head were acquired from the base of the skull to the colin chad without intravenous contrast administration. CT angiography of the head and neck was performed f ollowing intravenous administration of iodinated contrast. Coronal and sagittal MIPS were obtained fr om the axial data set and were submitted for review. Automated dose lowering techniques and/or adjus tment according to patient size were utilized for this examination. All measurements were calculated based on NASCET criteria. Comparison: None available at the time of this dictation. FINDINGS: CT head: There is no acute intracranial hemorrhage or evidence of acute territorial infarction. No sh ift of the midline structures, mass effect, or extra-axial abnormalities are shown. Biapical emphysema is seen. CTA Neck: A 3 vessel aortic arch is shown. There is no significant atherosclerotic plaque in the aor tic arch or the origins of the innominate, left common carotid, and left subclavian arteries. The c ommon carotid, external carotid, cervical segments of the internal carotid arteries, and the cervical segments of the vertebral arteries are patent without hemodynamically significant stenosis. The left vertebral artery is dominant. CTA Head: The anterior and posterior cerebral circulations are patent. No hemodynamically significan t stenosis, aneurysm, dissection, or arteriovenous malformation is shown. Atherosclerotic disease is noted. IMPRESSION: 1. No acute intracranial hemorrhage, evidence of acute territorial infarction, or other acute intrac ranial disease process. 2. No occlusion, hemodynamically significant stenosis, aneurysm, dissection, or arteriovenous malfor mation in the major intracranial arteries. 3. No occlusion, hemodynamically significant stenosis, or dissection in the major cervical arteries. Assessment of stenosis of the internal carotid arteries is based on NASCET criteria. ACT 112: Negative or not required by law. Electronically signed by: Leo Lawton M.D. 03/24/2022 7:48 AM
[2022-03-24] MEDS ORDERED: CHECK CLONIDINE PATCH PLACEMENT SCH (08:00)
[2022-03-24] MEDS ORDERED: ASPIRIN 81 MG ECTAB PO SCH (09:00)
[2022-03-24] MEDS ORDERED: SPIRONOLACTONE 25 MG TAB PO SCH (09:00)
[2022-03-24] MEDS ORDERED: PANTOprazole 40 MG TAB PO SCH (09:00)
[2022-03-24] MEDS ORDERED: lisinopril 40 MG TAB PO SCH (09:00)
[2022-03-24] MEDS ORDERED: DULoxetine HCL 60 MG CAP PO SCH (09:00)
[2022-03-24] MEDS ORDERED: LABETALOL HCL 300 MG TAB PO SCH (09:00)
[2022-03-24] MEDS ORDERED: LUBIPROSTONE 8 MCG CAP PO SCH (09:00)
[2022-03-24] MEDS ORDERED: CHROMIUM PO SCH (09:00)
[2022-03-24] MEDS ORDERED: NON-FORMULARY MEDICATION (Coenzyme Q10 100 mg capsule) PO SCH (09:00)
[2022-03-24] MEDS ORDERED: ENOXAPARIN INJ 40 MG/0.4 ML SYR SQ SCH (09:00)
[2022-03-24] MEDS ORDERED: INSULIN GLARGINE SOLOSTAR 100 UNITS/ML 3 ML PEN SC SCH (09:00)
[2022-03-24] MEDS ORDERED: DICYCLOMINE HCL 20 MG TAB PO SCH (09:00)
--- NOTE | 2022-03-24 09:13 | Magnetic Resonance Report ---
MR brain wo/w con CLINICAL HISTORY: stroke r/o TECHNIQUE: Multiplanar and multisequence MR images of the brain were obtained prior to and following administration of gadolinium contrast. Comparison: Comparison is made to MRI brain 11/23/2019 FINDINGS: No abnormal restricted diffusion is identified. The white matter is unremarkable. The ventricular sys tem is normal in appearance. No mass or abnormal enhancement is seen. There is no mass effect or midl ine shift. There is no evidence of acute intraparenchymal hemorrhage. No extra axial fluid collection s are seen. The corpus callosum, pituitary gland, and cerebellar tonsils appear grossly unremarkable. Flow voids of the major intracranial arterial vessels are identified. The imaged portions of the para nasal sinuses, mastoid air cells, and orbits are unremarkable. IMPRESSION: No acute abnormality is seen in particular there is no evidence of acute infarct. ACT 112: Negative or not required by law. Electronically signed by: Leo Lawton M.D. 03/24/2022 9:10 AM
--- NOTE | 2022-03-24 09:32 | Discharge Summary ---
Date of Service March 24, 2022 Admission HPI Per Admitting Provider Angie Kingsley is a 61-year-old female with past medical history of past CVA, anxiety/depression, IBS, hyperlipidemia, hypertension, DM 2, GERD, SAKINA, autoimmune hepatitis who presented to the ED via EMS due to AMS/confusion /forgetfulness. About 1 hour and 15 minutes prior to ED arrival, patient's mother had noticed that patient was confused. She has been having difficulty with short term memory seemingly for this period of time. Patient denies headache, dizziness, vision changes, weakness, numbness,, fever, chills, neck pain, chest pain, nausea, vomiting, shortness of breath, cough, diarrhea, rashes, joint pains. Patient is unable to recall whether she had any falls at home, but states she does not have pain anywhere and there are no obviously visible signs of trauma. She cannot remember whether she lost consciousness. Her long-term memory is intact, she is able to discuss her medical history. However, she states she is unable to remember anything after [place] at this time. On arrival to ED, blood pressure was found to be elevated to 200s over 110s. She was started on nicardipine drip in ED for blood pressure control her blood pressure then decreased to 150s over 80s without any change in her mental status at which point nicardipine drip was discontinued. Patient had CT head, which showed no acute intracranial findings. CTA head and neck were also unremarkable. Lab work largely unremarkable, except for mildly elevated high- sensitivity troponin of 24.4. EKG did not show any obvious signs of ischemia and she consistently denies chest pain, palpitations, shortness of breath. ED provider spoke with Marianne corderostroke who recommended loading patient with antiplatelet medication, did not recommend thrombolysis at this time. Recommended admission for MRI imaging and to monitor blood pressure. Upon my evaluation, patient remains very forgetful. States she does not remember anything since the beginning of March. Repeatedly asks what date it is, even within seconds of being told the information. She continues to deny headache, nausea, vomiting, dizziness, vision changes, chest pain, shortness of breath, palpitations, neuro deficits, weakness, rashes, joint pains, abdominal pain. Admission Exam Per Admitting Provider GENERAL: A&Ox1. NAD. HEENT: PERRL, EOMI. Moist mucous membranes. NECK: No JVD. No lymphadenopathy. CHEST/LUNGS: CTAB A/P. No crackles, wheezes, rales, rhonchi. HEART: RRR. No m/g/r. No carotid bruits. ABDOMEN: NT/ND, soft. BS+ x4. EXTREMITIES: No cyanosis, no clubbing, no edema SKIN: Warm and dry. No rashes or lesions. PSYCHIATRIC: No pressured speech, no hallucinations NEUROLOGIC: Confued. No FND. CN II-XII grossly intact. Principal Diagnosis Altered Mental Status Hypertensive Emergency Discharge Exam General: A&Ox3. NAD. Cooperative. HEENT: Atraumatic, normocephalic. Pulm: CTAB A&P. -wheezes, -rales, -rhonchi. Symmetrical chest rise. No increase work of breathing. No respiratory distress. Cardiac: RRR, -mrg. Radial pulses intact and symmetrical. No LE edema. Abdominal: soft, non-tender, non-distended, BS x 4 Skin: warm, dry, no rash Neurologic patellar DTR's 2+ bilat, sensation intact and PERRL, EOMI, accommodation nl, no face palsy, no dysarthria normal touch/pain/proprioception, CN's II-XI intact bilaterally, deep tendon reflexes 2+ bilaterally and moves all extremities Speech / Cognition: normal speech Motor/Sensory: no tremor and no pronator drift Gait: no ataxic gait Coordination: normal [id number]-jr-gcla test, normal qigq-si-tijm test and normal Romberg test Discharge Data Allergies Allergy/AdvReac Type Severity Reaction Status Date / Time chlorthalidone Allergy Intermediate Forceful Verified 03/23/22 20:12 urination and pain in legs. dulaglutide [From Trulicity] Allergy Intermediate "colitis Verified 03/23/22 2 0:12 attack" amlodipine Allergy Mild Rash Verified 03/23/22 20:12 latex Allergy Mild itchy Verified 03/23/22 20:12 cefaclor AdvReac Intermediate GI SYMPTOMS Verified 03/23/22 20:12 Consultations 03/23/22 21:28 ED Decision to Admit Stat 03/24/22 00:56 Consult Neurology Routine Ordered Studies 03/23/22 20:05 CT angio head w con Stat CT angio neck with con Stat CT head/brain wo con Stat 06/13/22 00:56 MR brain wo/w con Routine Hospital Course (1) AMS (altered mental status): Angie Kingsley is a 61-year-old female with past medical history of past CVA, anxiety/depression, IBS, hyperlipidemia, hypertension, DM 2, GERD, SAKINA, autoimmune hepatitis who was admitted to [facility] from 03/23 - 03/24 due to short-term memory loss in context of hypertensive emergency. Short-Term Memory Loss, Resolving Initially reported short-term memory loss x2 weeks but now only reports memory loss x12 hours. CT head, CTA head/neck, MRI brain negative for CVA. Suspect this is due to delirium 2/2 to medications (Xanax, anti-cholinergics) vs due to hypertensive emergency vs transient global amnesia. - tPA not administered - Neurology consulted - suspected that this is transient global amnesia, and did not recommend any new diagnostic steps or treatments - patient received Aspirin 324mg on presentation - continue with home baby Aspirin daily - Atorvastatin increased from 40mg to 80mg nightly (LDL 82) - can continue this dose on discharge - hold home Xanax, Dicyclomine, Hyoscyamine, and Oxybutynin on discharge - further management per PCP Lyme, Babesia, Anaplasma work-up ordered - pending Hypertensive Emergency, resolved; Elevated Troponin BP 200s/110s on presentation, with rapid improvement to 150s/80s after Nicardipine gtt, may be in part due to anxiety. With mildly elevated hsTroponin to 77 but no chest pain and EKG without ST/T changes --> suspect demand ischemia due to HTN. - Continue home clonidine TD patch, labetalol twice daily, lisinopril daily, spironolactone daily - further management per PCP T2DM A1c 7.9 while hospitalized. - SSI utilized while hospitalized - on discharge will increase Metformin to 1000mg daily - continue home Empagliflozin at same dose HLD - increased Atorvastatin to 80mg as stated above - recommend repeat lipid profile in 3 months - per PCP IBS Continue home Amitiza hold home hyoscyamine & dicyclomine as stated above Stress incontinence hold home oxybutynin as stated above SAKINA CPAP QHS GERD Continue home pantoprazole 40 mg daily (2) IBS (irritable bowel syndrome): (3) History of CVA (cerebrovascular accident): (4) Dyslipidemia: (5) Obstructive sleep apnea: (6) Resistant hypertension: (7) Type 2 diabetes mellitus: (8) Stress incontinence in female: Total Time Total Time Spent Total Time Spent (In Minutes): 30 minutes Discharge Plan Discharge Items Patient Disposition: Home - Self-Care Reason For Visit: AMS, FORGETFULNESS, CONFUSION Discharge Diagnosis: Short Term Memory Loss Hypertensive Emergency Activity: Per Instructions section Non-emergency contact: Primary Care Provider and Neurologist Call non-emergency contact if: you have any medication questions and your symptoms worsen Follow-up/Referrals: Ree Cotton DO [Primary Care Provider] - 03/28/22 2:20 am (please schedule f/u within 1 week of discharge) Diet: Carb Consistent or DM2 Addtl Attending Provider Instructions: You were admitted to [facility] from 03/23 to 03/24 for short- term memory loss and high blood pressure. Your blood pressure responded well to an IV blood pressure medication called Nicardipine. You had significant testing for the short term memory loss, and there is no evidence for stroke. Your memory loss improved throughout this short hospitalization. You will be discharged on 03/24 in improved, stable condition. For blood pressure, please continue all of your scheduled home medications. Your short term memory loss is most likely due to some of your home medications, as several of your home medications can cause short term memory loss. Stop taking the following medications: Xanax, Dicyclomine, Hyoscyamine, and Oxybutynin Additionally, your Atorvastatin was increased to 80mg nightly, as your LDL was 82 (slightly elevated) and you have a history of previous stroke. Please contin ue taking this medication at the increased dose after discharge. Lastly, we increased your Metformin to 1000mg nightly, as your A1c was a little high (7.8). Please follow up with your PCP for further dose changes. Please continue to take your other medications as scheduled. Please follow up with your PCP for further management. Pending Studies at Discharge: Yes Studies:: tick-borne panel (anaplasma, babesia, ehrlichia) Stand-Alone Forms: My [facility], Smoking Cessation Medications and DC Order Prescriptions: Continued lubiprostone [Amitiza] 8 mcg capsule 8 mcg PO BID 90 Days Qty: 180 RF: 3 spironolactone 50 mg tablet 25 mg PO QAM Qty: 90 RF: 3 clonidine 0.3 mg/24 hr patch weekly 1 patch transdermal WEEKLY Qty: 12 RF: 3 labetalol 200 mg tablet 600 mg PO BID Qty: 540 RF: 1 duloxetine 60 mg capsule,delayed release(DR/EC) 60 mg PO QAM Qty: 90 RF: 3 pantoprazole [Protonix] 40 mg tablet,delayed release (DR/EC) 40 mg PO DAILY Qty: 30 RF: 2 lisinopril 40 mg tablet 40 mg PO QAM Qty: 90 RF: 1 empagliflozin 25 mg tablet 25 mg PO QAM Qty: 90 RF: 1 (DME) [facility] See Rx Instructions .ROUTE .MEDSUPPLY Qty: 1 RF: 0 coenzyme Q10 100 mg capsule 100 mg PO QAM RF: 0 cinnamon bark [Cinnamon] 500 mg capsule 1,500 mg PO QAM RF: 0 chromium 200 mcg tablet 200 mcg PO QAM RF: 0 aspirin [Adrien Low Dose Aspirin] 81 mg tablet,delayed release (DR/EC) 81 mg PO QAM 30 Days Qty: 30 RF: 3 Changed atorvastatin 40 mg tablet 80 mg PO HS Qty: 30 RF: 3 metformin 500 mg tablet extended release 24 hr 1,000 mg PO QPM Qty: 90 RF: 3 Discontinued oxybutynin chloride 5 mg tablet extended release 24hr 5 mg PO QAM Qty: 90 RF: 3 alprazolam 0.5 mg tablet 0.5 mg PO QPM Qty: 90 RF: 0 hyoscyamine sulfate 0.125 mg tablet 0.125 mg PO DAILY PRN (Reason: spasms) RF: 0 dicyclomine 20 mg tablet 20 mg PO QAM RF: 0 Discharge Orders: Discharge Order (Routine); Ordered 03/24/22 Ordered By: Keivn Suresh Admission Data Admit Date/Time: 03/23/22 22:36 Attending Provider: Jero Tay Admit Provider: Brian Fernandez Primary Care Provider: Ree Cotton Supervising Physician Co-Signing Physician Notes Attending attestation Pt seen and examined in concert with Dr. Suresh. In agreement with the documented findings as noted in the resident documentation with any exceptions or additions as noted here. Patient reports continued improvement of memory symptoms today but history of chronicity is still variable - some very good detail about events but then espouses difficulty remembering other accompanying events. On specific questioning, patient reports non-daily use of alprazolam On examination, S1/S2 nl RRR no MCG. CTAB. Abd NT/ND BS+ve. CNII-XII grossly intact. Short-term memory loss, improving - neurology consult - increase statin. Infectious w/u pending. Reviewed concerns for polypharmacy as well as accidental overuse HTN emergency, resolved - continue home BP medications as noted T2DM - metformin increased w/ A1c of 7.9%. Continue empagliflozin Else see resident documentation as noted. Total attending time spent on this patients care on the day of discharge: 35 minutes. Resident Activity Tracking Resident Involvement: Resident Care Provided Care Provided: Adult Hospital Medicine
--- NOTE | 2022-03-24 09:48 | Neurology Consultation ---
Date of Consultation March 24, 2022 Assessment & Plan (1) Transient global amnesia: 61-year-old female with a probable episode of transient global amnesia occurring yesterday. Patient still has some residual amnesia for yesterday's events which is expected. She is currently neurologically intact. No evidence of acute or subacute stroke on recently completed MRI. No significant vascular lesion on CT angiography of the head and neck. The underlying pathophysiology of TGA is not completely understood. However, TGI is not felt to be due to cerebral ischemia, seizures, or migrainous phenomena. The condition is generally felt to be benign with low risk for recurrence. TGA is not predictive of dementia. Patient should continue with her usual cardiovascular risk modifying medication regimen. Additional neurological assessments are not needed at this time. History of Present Illness Reason for Consultation: amnesia Requesting Physician: Brian Fernandez MD Attending Physician: Jero Tay MD History of Present Illness The patient is a 61-year-old female with a chief complaint of amnesia. She had presented to the emergency department yesterday for further assessment of confusion beginning just over an hour prior to her evaluation. The patient recalls that she had been doing some yoga earlier that day. She has otherwise amnestic for the ensuing events but does have some recollection of her evaluation in the emergency department. The patient does take care of her mother who apparently noticed profound difficulty with short-term memory. She subsequently contacted emergency medical personnel who brought the patient to the emergency department for further evaluation and management. The patient does complain of a low-grade headache this morning. Otherwise, she does not have specific or focal complaints. She continues to have some residual amnesia for yesterday's events, but otherwise, her memory function has returned to normal today. She had an unremarkable CT angiogram of the head and neck including CT of the head. A follow-up brain MRI was negative for acute or subacute infarct or other significant pathology. No reported history of significant memory problems at baseline. She was evaluated by Dr. Montalvo, outpatient neurology assessment, in October 2019 for word finding difficulty and was found to have some minimal chronic microvascular ischemic change in the brain at that time, notably an area of increased T2 signal within the anterior limb of the left external capsule. This finding was present on her MRI in November 2019. I was able to identify this finding on her recent brain MRI as well. Allergies Allergy/AdvReac Type Severity Reaction Status Date / Time chlorthalidone Allergy Intermediate Forceful Verified 03/23/22 20:12 urination and pain in legs. dulaglutide [From Trulicity] Allergy Intermediate "colitis Verified 03/23/22 20:12 attack" amlodipine Allergy Mild Rash Verified 03/23/22 20:12 latex Allergy Mild itchy Verified 03/23/22 20:12 cefaclor AdvReac Intermediate GI SYMPTOMS Verified 03/23/22 20:12 Home Medications Medication Instructions Recorded Confirmed Type coenzyme Q10 100 mg capsule 100 mg PO QAM cap 07/01/19 03/23/22 History chromium 200 mcg tablet 200 mcg PO QAM 11/09/19 03/23/22 History cinnamon bark 500 mg capsule 1,500 mg PO QAM cap 11/09/19 03/23/22 History (Cinnamon) CPAP Supplies #1 ea 07/26/20 03/23/22 Rx aspirin 81 mg tablet,delayed 81 mg PO QAM 11/20/20 03/23/22 History release (Adrien Low Dose Aspirin) dicyclomine 20 mg tablet 20 mg PO QAM tab 06/14/21 03/23/22 History hyoscyamine sulfate 0.125 mg tablet 0.125 mg PO DAILY PRN tab 06/14/21 03/23/22 History Amitiza 8 mcg capsule 8 mcg PO BID 90 Days #180 cap NS 08/27/21 03/23/22 Rx (lubiprostone) oxybutynin chloride 5 mg 5 mg PO QAM #90 tab 11/01/21 03/23/22 Rx tablet,extended release 24 hr spironolactone 50 mg tablet 25 mg PO QAM #90 tab 11/01/21 03/23/22 Rx clonidine 0.3 mg/24 hr weekly 1 patch TRANSDERMAL WEEKLY #12 ea 11/07/21 03/23/22 Rx transdermal patch empagliflozin 25 mg tablet 25 mg PO QAM #90 tab 12/13/21 03/23/22 Rx atorvastatin 40 mg tablet 40 mg PO HS #90 tab 12/23/21 03/23/22 Rx labetalol 200 mg tablet 600 mg PO BID #540 tab 12/23/21 03/23/22 Rx metformin 500 mg tablet,extended 500 mg PO QPM #90 tab 03/14/22 06/12/22 Rx release 24 hr alprazolam 0.5 mg tablet 0.5 mg PO QPM #90 tab 01/07/22 03/23/22 Rx duloxetine 60 mg capsule,delayed 60 mg PO QAM #90 cap 01/13/22 03/23/22 Rx release pantoprazole 40 mg tablet,delayed 40 mg PO DAILY #30 tab 02/07/22 03/23/22 Rx release (Protonix) lisinopril 40 mg tablet 40 mg PO QAM #90 tab 02/17/22 03/23/22 Rx Patient History Medical History Adrenal adenoma Under observation 19mm left adrenal nodule per December 2020 abdomen/pelvic CT scan Anemia Dyslipidemia Dysphagia Improved/relieved Following with GI, normal esophagus per EGD report 07/30/2021, gastritis biopsied/had esophageal stretching Hearing difficulty No hearing aids needed at this time Hepatitis, autoimmune In remission per pt since approx 2013, follows with [facility] History of CVA (cerebrovascular accident) (06/2019) Mild, no deficits--no neurologist Had some memory issues,/facial droop> went to therapy, no further issues Irritable bowel syndrome (IBS) Lumbar degenerative disc disease Lumbar spinal stenosis Obstructive sleep apnea CPAP Pulmonary emphysema (05/01/13) Renal cyst PRN f/u with [facility] Resistant hypertension Stress incontinence in female Type 2 diabetes mellitus Glucose controlled Surgical History History of appendectomy History of colonoscopy History of esophagogastroduodenoscopy (EGD) History of surgical removal of ganglion cyst History of tooth extraction History of wisdom tooth extraction S/P cholecystectomy (~1991) with appy S/P manipulation of deviated nasal septum (~1981) Family History Mother Cervical cancer Atrial fibrillation Breast cancer Hypertension Father Hypertension Brother Diabetes Kidney disease Myocardial infarction Hypertension Other No family history of adverse response to anesthesia Denies family history of Ovarian cancer Prostate cancer Colorectal cancer Social History Smoking Status: Former smoker Tobacco Type: Cigarettes Age Started Using Tobacco: 19; Age Quit Using Tobacco: 49; Cigarettes Per Day: vaps periodically; Second Hand Exposure: No; Hx Alcohol Use: Yes Alcohol Intake Frequency: Monthly or Less Hx Substance Use: No Preferred Language: Maori Communication Ability: Effective Visual Impairment: No Limitations Hearing Ability: Hard of Hearing Drop [employer]ge Operator Required: No Beliefs That Will Affect Care: None marital status: Single Current Living Situation: Family Current Living Situation Comment: Lives with mom current occupational status: employed Feels Safe at Home: Yes caffeine: Yes Dental Care, Regularly: Yes Physical Activity Frequency: 5-6 Times per Week Seatbelt Use: always Sunscreen Use: Yes Assistive Devices: Cane, CPAP and Glasses Review of Systems Constitutional: no fever and no chills Eyes: no blind spots and no diplopia Ear, Nose, Mouth, Throat: no ear pain and no hearing loss Respiratory: no cough and no dyspnea Cardiovascular: no chest pain and no palpitations Gastrointestinal: no constipation and no diarrhea/loose stools Genitourinary: no urinary urgency and no urinary incontinence Musculoskeletal: no muscle weakness and no muscle atrophy Integumentary: no rash and no lesions Neurologic: as per Subjective / HPI Psychiatric: no behavioral changes, no depression, no abnormal sleep pattern and no anxiety Hematologic / Lymphatic: no easy bruising and no lymphadenopathy Exam (Neuro) Constitutional: well developed and well nourished; no acute distress Eyes: normal visual [place] by confrontation, PERRL, normal accommodation and EOM intact bilaterally; no fundoscopic abnormality, no nystagmus and no papilledema Cardiovascular: Vessels: normal carotid upstroke; no carotid bruit Neurologic: Oriented to:: Person, Place and Time Memory: Short Term Intact and Remote Intact Attention: Span Intact and Concentration Intact Language: Naming Objects and Repeating Phrases Speech Fluency: negative Dysarthria Speech Aphasia: negative Aphasia Fund of Knowledge: Current Events, Past History and Vocabulary Cranial Nerves: Normal II (Visual [place] full to confrontation, visual acuity normal), III, IV, (Pupils equal round reactive to light and accommodation, eye movements normal), V (Facial sensation intact), VII (There is no facial droop or weakness), VIII (Hearing intact), IX, X (Palate elevates to midline), XI (Shoulder shrug intact) and XII (Tongue protrudes to midline) Motor Strength: Normal Lower Extremities and Normal Upper Extremities; negative Pronator Drift Motor Tone: Normal Lower Extremities and Normal Upper Extremities Muscle Bulk/Involuntary Movements: No Involuntary Movements; negative Muscle Atrophy Sensation: Light Touch Intact, Pain/Temperature Intact, Vibration Intact and Proprioception Intact Coordination: Normal; negative Limited Balance, Dysdiadochokinesia, Finger-Nose Abnormal or Heel-Hernandez Abnormal Deep Tendon Reflexes: Rt Triceps: 2+, Lt Triceps: 2+, Rt Biceps: 2+, Lt Biceps: 2+, Rt Brachioradialis: 2+, Lt Brachioradialis: 2+, Rt Patellar: 2+, Lt Patellar: 2+, Rt Ankle: 2+ and Lt Ankle: 2+ Special Tests: negative Babinski Present Gait: Normal Station and Gait Results & Data ([facility]) Vital Signs (Past 12 Hours) Vital Signs Temp Pulse Pulse Resp BP BP BP 03/24/22 08:21 36.8 C 70 18 161/87 H 03/24/22 06:44 36.8 C 70 18 169/98 H 03/24/22 05:05 69 18 150/91 H 03/24/22 03:00 69 15 151/86 H 03/24/22 00:12 90 170/104 H 03/23/22 23:45 91 H 168/121 H 03/23/22 23:04 97 H 16 171/129 H 03/23/22 22:45 95 H 16 204/119 H Pulse Ox Pulse Ox 03/24/22 08:21 94 03/24/22 06:44 94 03/24/22 05:05 96 03/24/22 03:00 95 95 03/24/22 00:12 03/23/22 23:45 03/23/22 23:04 96 03/23/22 22:45 96 Laboratory Results WBC 10.09, hemoglobin 13.5, hematocrit 39.9, MCV 95.5, platelet count 342, sodium 139, potassium 4.1, BUN 19, creatinine 1.13, glucose 144, hemoglobin A1c 7.9, calcium 10.0, magnesium 1.9, AST 25, ALT 26, triglycerides 132, cholesterol 155, LDL 82, VLDL 26, HDL [address] of the head, CT angiography of the head and neck, and brain MRI are as described in history of present illness. I reviewed the images as well as the r adiologist's interpretation of these tests. An electrocardiogram reveals a normal sinus rhythm, 67 bpm. Coding Level of Care Code 89665 Initial Inpt Care Lvl 3 Diagnoses Transient global amnesia G45.4
--- NOTE | 2022-03-24 11:34 | Pharmacy Report ---
Pharmacy Glycemic Short Note 2 - Date of Service March 24, 2022 - Glycemic Short BSG Results (Last 24 hours): 03/23/22 03/23/22 03/24/22 20:29 20:33 05:50 Glucose 156 H 127 H POC Glucose 167 H 03/24/22 05:58 Glucose POC Glucose 144 H OUTPATIENT ANTIDIABETIC REGIMEN: * Jardiance 25 mg PO qAM * Metformin ER 500 mg PO qPM * HbA1c = 7.9% (03/24/22) ASSESSMENT: * 61 yo F admitted secondary to a possible stroke. Pharmacy has been consulted to assist with inpatient glycemic management. All imaging negative for acute CVA. Patient has passed dysphagia screen this AM so diet was advanced to T2DM. No other stressors at this time. * Fasting BSG this AM was 144 mg/dL. Patient was given 10 units of Lantus given NPO status. Started on Novolog based on weight/stress of 1. * Will trend BSGs throughout the day and adjust insulin as needed. PLAN FOR INPATIENT GLYCEMIC CONTROL: * Hold outpatient oral diabetes medications * Basal insulin * Lantus 10 units SQ qAM * Bolus insulin * NovoLog per scale ACHS or Q6hrs while NPO * Goal Range: Low 110 mg/dL - High 140 mg/dL * Correction Factor: 45 mg/dL/unit * Nutritional / Prandial insulin per carb ratio of 1 unit per 15 grams CHO consumed
--- NOTE | 2022-03-24 11:37 | Electrocardiogram Report ---
Test Reason : Blood Pressure : / mmHG Vent. Rate : 099 BPM Atrial Rate : 099 BPM P-R Int : 170 ms QRS Dur : 082 ms QT Int : 384 ms P-R-T Axes : 061 047 072 degrees QTc Int : 492 ms Poor data quality, interpretation may be adversely affected Normal sinus rhythm Nonspecific ST abnormality Prolonged QT Abnormal ECG When compared with ECG of 09-OCT-2021 12:31, Vent. rate has increased BY 39 BPM Non-specific change in ST segment in Inferior leads ST now depressed in Anterolateral leads Confirmed by Tavo Patel ([id number]) on 03/24/2022 11:37:47 AM Referred By: REFERRED SELF Confirmed By:Franko Patel
--- NOTE | 2022-03-24 11:43 | Electrocardiogram Report ---
Test Reason : Blood Pressure : / mmHG Vent. Rate : 067 BPM Atrial Rate : 067 BPM P-R Int : 182 ms QRS Dur : 084 ms QT Int : 466 ms P-R-T Axes : 067 045 082 degrees QTc Int : 492 ms Normal sinus rhythm Prolonged QT Abnormal ECG When compared with ECG of 23-MAR-2022 20:35, (unconfirmed) ST no longer depressed in Lateral leads Confirmed by Tavo Patel ([id number]) on 03/24/2022 11:43:11 AM Referred By: REFERRED SELF Confirmed By:Franko Patel
[2022-03-24] MEDS ORDERED: STROKE PATIENT DISCHARGE STA (12:06)
[2022-03-24] MEDS ORDERED: ATORVASTATIN 40 MG TAB PO SCH ×2 (21:00)
[2022-03-28] MEDS ORDERED: cloNIDine HCL 0.3 MG/24 HR TRANSDERM SYS TD SCH (09:00)
== END 2022-03-24 15:30 | disposition home or self-care (01) ==
LOC: ED 20:00 → EDINP 20:00 → SUATTDRO 22:36 → 1E 03-24 01:08

== ENCOUNTER 2022-09-22 10:44 | Inpatient (IN) ==
--- NOTE | 2022-08-27 15:51 | PAT Medication Instructions ---
Medication Instructions Date of Service August 27, 2022 Home Medications Medication Instructions Recorded CPAP Supplies #1 ea 07/26/20 Amitiza 8 mcg capsule 8 mcg PO BID IBS-C 90 days #180 08/27/21 (lubiprostone) caps spironolactone 50 mg tablet 25 mg PO QAM #90 tabs 11/01/21 aspirin 81 mg tablet,delayed 81 mg PO QAM 30 days #30 tabs 03/24/22 release (Adrien Low Dose Aspirin) atorvastatin 40 mg tablet 80 mg PO HS #30 tabs 03/24/22 dicyclomine 20 mg tablet 20 mg PO QAM PRN abdominal 03/28/22 discomfort #30 tabs empagliflozin 25 mg tablet 25 mg PO QAM #90 tabs 05/19/22 pantoprazole 40 mg tablet,delayed 40 mg PO BID gastritis and 05/29/22 release (Protonix) erosions #180 tabs labetalol 200 mg tablet 600 mg PO BID #540 tabs 06/20/22 lisinopril 40 mg tablet 40 mg PO QAM #90 tabs 07/30/22 coenzyme Q10 100 mg capsule 100 mg PO HS cinnamon bark 500 mg capsule (Cinnamon) 1,500 mg PO QAM Amitiza 8 mcg capsule (lubiprostone) 8 mcg PO BID IBS-C spironolactone 50 mg tablet 25 mg PO QAM aspirin 81 mg tablet,delayed release (Adrien Low Dose Aspirin) 81 mg PO QAM atorvastatin 40 mg tablet 80 mg PO HS dicyclomine 20 mg tablet 20 mg PO QAM PRN abdominal discomfort metformin 500 mg tablet,extended release 24 hr 500 mg PO HS empagliflozin 25 mg tablet 25 mg PO QAM pantoprazole 40 mg tablet,delayed release (Protonix) 40 mg PO BID gastritis and erosions labetalol 200 mg tablet 600 mg PO BID lisinopril 40 mg tablet 40 mg PO QAM alprazolam 0.5 mg tablet 0.5 mg PO QPM PRN blood pressure spikes chromium 1,000 mcg tablet 500 mcg PO QAM clonidine 0.3 mg/24 hr weekly transdermal patch 1 patch transdermal Q7D docusate sodium 100 mg capsule (Colace) 100 mg PO UD PRN Constipation duloxetine 60 mg capsule,delayed release 60 mg PO QAM hyoscyamine sulfate 0.125 mg tablet 0.125 mg PO DAILY PRN IBD melatonin 5 mg tablet 5 mg PO HS PRN Sleep multivitamin 1 tab PO QAM oxybutynin chloride 5 mg tablet 5 mg PO BID PRN cystitis Continue as directed clonidine 0.3 mg/24 hr weekly transdermal patch 1 patch transdermal Q7D (avoid placement near surgery site prior to surgery) ASK your prescriber and surgeon aspirin 81 mg tablet,delayed release (Adrien Low Dose Aspirin) 81 mg PO QAM STOP taking 2 weeks before surgery (or as soon as possible if surgery is within 2 weeks) coenzyme Q10 100 mg capsule 100 mg PO HS cinnamon bark 500 mg capsule (Cinnamon) 1,500 mg PO QAM DO NOT take the morning of surgery Amitiza 8 mcg capsule (lubiprostone) 8 mcg PO BID IBS-C spironolactone 50 mg tablet 25 mg PO QAM dicyclomine 20 mg tablet 20 mg PO QAM PRN abdominal discomfort lisinopril 40 mg tablet 40 mg PO QAM chromium 1,000 mcg tablet 500 mcg PO QAM docusate sodium 100 mg capsule (Colace) 100 mg PO UD PRN Constipation hyoscyamine sulfate 0.125 mg tablet 0.125 mg PO DAILY PRN IBD multivitamin 1 tab PO QAM oxybutynin chloride 5 mg tablet 5 mg PO BID PRN cystitis Take morning of surgery With a small sip of water, OTHERWISE NOTHING TO EAT OR DRINK AFTER MIDNIGHT: pantoprazole 40 mg tablet,delayed release (Protonix) 40 mg PO BID gastritis and erosions labetalol 200 mg tablet 600 mg PO BID duloxetine 60 mg capsule,delayed release 60 mg PO QAM Take evening before surgery Amitiza 8 mcg capsule (lubiprostone) 8 mcg PO BID IBS-C atorvastatin 40 mg tablet 80 mg PO HS metformin 500 mg tablet,extended release 24 hr 500 mg PO HS pantoprazole 40 mg tablet,delayed release (Protonix) 40 mg PO BID gastritis and erosions labetalol 200 mg tablet 600 mg PO BID alprazolam 0.5 mg tablet 0.5 mg PO QPM PRN blood pressure spikes (if needed) docusate sodium 100 mg capsule (Colace) 100 mg PO UD PRN Constipation (if needed) hyoscyamine sulfate 0.125 mg tablet 0.125 mg PO DAILY PRN IBD (if needed) melatonin 5 mg tablet 5 mg PO HS PRN Sleep (if needed) oxybutynin chloride 5 mg tablet 5 mg PO BID PRN cystitis (if needed) STOP taking 3 days before surgery empagliflozin 25 mg tablet 25 mg PO QAM Other Notes If you have any questions please call us at [phone] or [phone] or [phone] or [phone]
--- NOTE | 2022-08-29 11:00 | Anesthesiology Consultation ---
Date of Service August 29, 2022 Assessment & Plan (1) Encounter for pre-operative examination: - COVID screening: Per assessment on 08/29: No known COVID-19 positive contacts or current COVID-19 related symptoms. Travel screen negative. Patient vaccinated. At surgeon discretion if preop Covid testing being done. Check BSG AM DOS - Neurology office visit (03/24/22): "probable episode of transient global amnesia occurring yesterday. Patient still has some residual amnesia for yesterday's events which is expected. She is currently neurologically intact. No evidence of acute or subacute stroke on recently completed MRI. No significant vascular lesion on CT angiography of the head and neck. The underlying pathophysiology of TGA is not completely understood. However, TGI is not felt to be due to cerebral ischemia, seizures, or migrainous phenomena. The condition is generally felt to be benign with low risk for recurrence. TGA is not predictive of dementia. Patient should continue with her usual cardiovascular risk modifying medication regimen. Additional neurological assessments are not needed at this time." - Patient acceptable risk for surgery pending surgeon-ordered PCP preop evaluation (YARI, appt 09/09). Chart Review Chart Review: Patient seen in Pre Admission Testing Teaching & Discussion Pre-Anesthesia Teaching/Discussion Notes: Instructed NPO after midnight before surgery,except medications with 15 cc of water. Medication instructions provided according to the PAT guidelines. History Surgery Operation Date: 09/22/22 09:50 Proposed Procedures p L2-S1 Decompression and Fusion, Spinal Cord Monitoring - Shaun Lopez DO Height/Weight Height: 5 ft 6 in Weight: 90.8 kg Allergies Allergy/AdvReac Type Severity Reaction Status Date / Time dulaglutide [From [facility]] Allergy Intermediate "Colitis Verified 08/29/22 14:22 attack" amlodipine Allergy Mild Rash Verified 08/27/22 13:49 latex Allergy Mild itchy Verified 08/27/22 13:49 cefaclor AdvReac Intermediate GI symptoms Verified 08/29/22 14:22 chlorthalidone AdvReac Intermediate Forceful Verified 08/29/22 14:22 urination and leg pain Medications Home Medications Medication Instructions Recorded Confirmed Last Taken coenzyme Q10 100 mg capsule 100 mg PO HS 07/01/19 08/27/22 07/29/21 08:00 cinnamon bark 500 mg capsule 1,500 mg PO QAM 11/09/19 08/27/22 07/29/21 08:00 (Cinnamon) CPAP Supplies #1 ea 07/26/20 08/27/22 Unknown Amitiza 8 mcg capsule 8 mcg PO BID IBS-C 90 days #180 08/27/21 08/27/22 Unknown (lubiprostone) caps spironolactone 50 mg tablet 25 mg PO QAM #90 tabs 11/01/21 08/27/22 Unknown aspirin 81 mg tablet,delayed 81 mg PO QAM 30 days #30 tabs 03/24/22 08/27/22 07/29/21 08:00 release (Adrien Low Dose Aspirin) atorvastatin 40 mg tablet 80 mg PO HS #30 tabs 03/24/22 08/27/22 Unknown dicyclomine 20 mg tablet 20 mg PO QAM PRN abdominal 03/28/22 08/27/22 Unknown discomfort #30 tabs metformin 500 mg tablet,extended 500 mg PO HS 03/28/22 08/27/22 Unknown release 24 hr empagliflozin 25 mg tablet 25 mg PO QAM #90 tabs 05/19/22 08/27/22 Unknown pantoprazole 40 mg tablet,delayed 40 mg PO BID gastritis and 05/29/22 08/27/22 Unknown release (Protonix) erosions #180 tabs labetalol 200 mg tablet 600 mg PO BID #540 tabs 06/20/22 08/27/22 Unknown lisinopril 40 mg tablet 40 mg PO QAM #90 tabs 07/30/22 08/27/22 Unknown alprazolam 0.5 mg tablet 0.5 mg PO QPM PRN blood pressure 08/27/22 08/27/22 Unknown spikes chromium 1,000 mcg tablet 500 mcg PO QAM 08/27/22 08/27/22 Unknown clonidine 0.3 mg/24 hr weekly 1 patch transdermal Q7D 08/27/22 08/27/22 Unknown transdermal patch docusate sodium 100 mg capsule 100 mg PO UD PRN Constipation 08/27/22 08/27/22 Unknown (Colace) duloxetine 60 mg capsule,delayed 60 mg PO QAM 08/27/22 08/27/22 Unknown release hyoscyamine sulfate 0.125 mg tablet 0.125 mg PO DAILY PRN IBD 08/27/22 08/27/22 Unknown melatonin 5 mg tablet 5 mg PO HS PRN Sleep 08/27/22 08/27/22 Unknown multivitamin 1 tab PO QAM 08/27/22 08/27/22 Unknown oxybutynin chloride 5 mg tablet 5 mg PO BID PRN cystitis 08/27/22 08/27/22 Unknown Past Medical History Medical History Adrenal adenoma Left adrenal nodule, under observation Anemia hx Dyslipidemia Hearing difficulty Hepatitis, autoimmune In remission per pt since approximately 2013, following with [facility] History of CVA (cerebrovascular accident) 06/2019 > no residual effects Irritable bowel syndrome (IBS) Lumbar degenerative disc disease Lumbar spinal stenosis Obstructive sleep apnea CPAP (compliant) Pulmonary emphysema Stable Renal cyst PRN f/u with [facility] Resistant hypertension Stress incontinence in female Transient global amnesia Episode 03/2022, advised by neuro no further assessments/testing needed at this time, no issues since Type 2 diabetes mellitus Exercise / Class Metabolic Activity III < 4 Walking/Shop/Light housework Past Family History Family History Mother Cervical cancer Atrial fibrillation Breast cancer Hypertension Father Hypertension Brother Diabetes Kidney disease Myocardial infarction Hypertension Other No family history of adverse response to anesthesia Denies family history of Ovarian cancer Prostate cancer Colorectal cancer Past Surgical History Surgical History History of appendectomy History of colonoscopy History of esophagogastroduodenoscopy (EGD) History of surgical removal of ganglion cyst History of tooth extraction History of wisdom tooth extraction S/P cholecystectomy with appy S/P manipulation of deviated nasal septum Past Anesthesia History No Hx of Anesthesia Complications and No Family Hx of Anesthesia Complications History of PONV No Hx of PONV and Hx of Motion Sickness Social History Smoking Status: Former smoker tobacco type: e-cigarettes Smoking cigarettes per day: Vapes periodically (with low nicotine level) Do You Dip or Chew Tobacco: No Smoking End Date: Quit 15+years ago Hx Alcohol Use: Yes alcohol intake frequency: holidays/special occasions only Hx Substance Use: No substance use type: does not use Review of Systems Patient denies chest pain, shortness of breath, fever, chills, cough, wheezing, palpitations. Physical Exam Vital Signs VITALS BP 144/83 P 78 TEMP 99.4 SP02 97%RA RESP 16 PHYSICAL Full cervical extension range of motion. Full TMJ range of motion. TMD 4 finger breaths Mallampati Score 2 Dentition: missing molars Lungs: clear throughout to auscultation Cardiac: regular rate and rhythm, no murmurs noted Spine: normal Carotid arteries: negative bruit Extremities: no edema Lab Results Anesthesia Preop Results Results Anesthesia Widget: WBC 9.86 K/ul (4.8-10.8) 08/29/22 Hgb 12.5 g/dl (12.0-16.0) 08/29/22 Hct 36.9 % (34.1-44.9) 08/29/22 Plt 342 K/uL (130-400) 08/29/22 Na 136 mmol/L (136-145) 08/29/22 K 4.3 mmol/L (3.5-5.1) 08/29/22 Cl 103 mmol/L (98-107) 08/29/22 CO2 26 mmol/L (21-32) 08/29/22 BUN 21 mg/dl (6-23) 08/29/22 Creat 1.06 mg/dl (0.6-1.2) 08/29/22 Glucose Level 251 mg/dl (70-99(Fasting)) H 08/29/22 PT 10.5 Seconds (9.0-12.0) 08/29/22 PTT 29.3 Seconds (21.0-31.0) 08/29/22 INR 1.0 (0.9-1.1) 08/29/22 Urine Color Yellow 08/29/22 Urine Appearance Clear (Clear) 08/29/22 Urine pH 5.5 (4.5-7.5) 08/29/22 Urine Specific [place] 1.021 (1.000-1.030) 08/29/22 Urine Protein Negative (Negative) 08/29/22 Urine Glucose (UA) 3+ (Negative) H 08/29/22 Urine Ketones Negative (Negative) 08/29/22 Urine Blood Negative (Negative) 08/29/22 Urine Nitrite Negative (Negative) 08/29/22 Urine Bilirubin Negative (Negative) 08/29/22 Urine Urobilinogen Negative (Negative) 08/29/22 Urine Leukocyte Esterase Negative (Negative) 08/29/22 Blood Type A Negative 08/29/22 Antibody Screen NEGATIVE 08/29/22 Testing Laboratory Results 06/11/22 HGBA1C 7.6% Electrocardiogram Date: 03/24/22 NSR at 67bpm. Prolonged QT. Chest X-Ray Date: 10/09/21 Findings: + NAD and + cardiomegaly (mild ) Echocardiogram Date: 12/01/19 EF: 60-65% LV Function: normal RWMA: + none Other Findings: + LVH (mild/concentric ) Valvular Disease: + MR (mild ) Mild left atrial dilation. Normal estimated RV systolic pressure No interatrial shunt. COVID-19 Risk Screen Screening Information COVID-19 Screen Date: 08/29/22 Exposure 21 Days Family/Household +COVID Last 21 Days: No Exposure 10 Days Any COVID Exposure Last 10 Days: No Symptoms Last 10 Days Experienced COVID Sx Last 10 Days: No + COVID 0-90 Days COVID + in Last 0-90 Days: No
[~2022-09-22 10:44] MED LIST changes: +ACETAMINOPHEN 500 MG TAB PO SCH; -ASPI-266 PO; -CINN500T PO; -CLON0.2T11 PO; -COEN100C11 PO; +CeleBREX 200 MG CAP PO SCH; -Centrum Silver PO; -DULO60CA44 PO; +GABAPENTIN 600 MG DOSE PO SCH; -LABE200T5 PO; -LISI40TA PO; +LR 15ML/HR IV SCH; -MELA1CAP9 PO; -METH500T3 PO; -REDCAP2 PO; -TAUR1000 PO; -VITAMIN B PO; +ceFAZolin 2000MG 2,000 MG/15 ML SYR IV SCH
--- NOTE | 2022-09-22 12:17 | History & Physical Bridge Note ---
Date of Service September 22, 2022 History & Physical Bridge Note I have examined the patient, reviewed the History & Physical and in the interval since the performance of the History & Physical I have noted the following changes of clinical significance: no changes noted
--- NOTE | 2022-09-22 12:18 | History & Physical Report ---
Date of Service September 22, 2022 Assessment & Plan (1) Lumbar spinal stenosis: Plan: L2-S1 decompression and fusion History of Present Illness Chief Complaint: Back and bilateral leg pain Primary Care Provider: Ree Cotton DO This is a 61-year-old female presents with chronic persistent back and bilateral leg pain. Failing course of nonoperative care she is here for surgical invention. Allergies Allergy/AdvReac Type Severity Reaction Status Date / Time dulaglutide [From [facility]] Allergy Intermediate "Colitis Verified 09/22/22 11:03 attack" amlodipine Allergy Mild Rash Verified 09/22/22 11:03 latex Allergy Mild itchy Verified 09/22/22 11:03 cefaclor AdvReac Intermediate GI symptoms Verified 09/22/22 11:03 chlorthalidone AdvReac Intermediate Forceful Verified 09/22/22 11:03 urination and leg pain Home Medications Medication Instructions Recorded Confirmed Type coenzyme Q10 100 mg capsule 100 mg PO HS 07/01/19 09/22/22 History cinnamon bark 500 mg capsule 1,500 mg PO QAM 11/09/19 09/22/22 History (Cinnamon) CPAP Supplies #1 ea 07/26/20 09/10/22 Rx spironolactone 50 mg tablet 25 mg PO QAM #90 tabs 11/01/21 09/22/22 Rx aspirin 81 mg tablet,delayed 81 mg PO QAM 30 days #30 tabs 03/24/22 09/22/22 Rx release (Adrien Low Dose Aspirin) atorvastatin 40 mg tablet 80 mg PO HS #30 tabs 03/24/22 09/22/22 Rx dicyclomine 20 mg tablet 20 mg PO QAM PRN abdominal 03/28/22 09/22/22 Rx discomfort #30 tabs metformin 500 mg tablet,extended 500 mg PO HS 03/28/22 09/22/22 History release 24 hr empagliflozin 25 mg tablet 25 mg PO QAM #90 tabs 05/19/22 09/22/22 Rx labetalol 200 mg tablet 600 mg PO BID #540 tabs 06/20/22 09/22/22 Rx lisinopril 40 mg tablet 40 mg PO QAM #90 tabs 07/30/22 09/22/22 Rx chromium 1,000 mcg tablet 500 mcg PO QAM 08/27/22 09/22/22 History docusate sodium 100 mg capsule 100 mg PO UD PRN Constipation 08/27/22 09/22/22 History (Colace) duloxetine 60 mg capsule,delayed 60 mg PO QAM 08/27/22 09/22/22 History release hyoscyamine sulfate 0.125 mg tablet 0.125 mg PO DAILY PRN IBD 08/27/22 09/22/22 History melatonin 5 mg tablet 5 mg PO HS PRN Sleep 08/27/22 09/22/22 History multivitamin 1 tab PO QAM 08/27/22 09/22/22 History oxybutynin chloride 5 mg tablet 5 mg PO BID PRN cystitis 08/27/22 09/22/22 History Amitiza 8 mcg capsule 8 mcg PO BID IBS-C 90 days #180 09/02/22 09/22/22 Rx (lubiprostone) caps alprazolam 0.5 mg tablet 0.5 mg PO QPM PRN blood pressure 09/10/22 09/22/22 Rx spikes #30 tabs pantoprazole 40 mg tablet,delayed 40 mg PO DAILY gastritis and 09/10/22 09/22/22 History release (Protonix) erosions clonidine 0.3 mg/24 hr weekly 1 patch transdermal Q7D #12 ea 09/17/22 09/22/22 Rx transdermal patch Past Med/Surg History Medical History Adrenal adenoma Anemia Dyslipidemia Hearing difficulty Hepatitis, autoimmune History of CVA (cerebrovascular accident) Irritable bowel syndrome (IBS) Lumbar degenerative disc disease Lumbar spinal stenosis Obstructive sleep apnea Pulmonary emphysema Renal cyst Resistant hypertension Stress incontinence in female Transient global amnesia Type 2 diabetes mellitus Surgical History History of appendectomy History of colonoscopy History of esophagogastroduodenoscopy (EGD) History of surgical removal of ganglion cyst History of tooth extraction History of wisdom tooth extraction S/P cholecystectomy S/P manipulation of deviated nasal septum Family History Mother Cervical cancer Atrial fibrillation Breast cancer Hypertension Father Hypertension Brother Diabetes Kidney disease Myocardial infarction Hypertension Other No family history of adverse response to anesthesia Denies family history of Ovarian cancer Prostate cancer Colorectal cancer Social History Smoking Status: Former smoker Tobacco Type: Cigarettes Age Started Using Tobacco: 19; Age Quit Using Tobacco: 49; Cigarettes Per Day: vaps periodically; Smoking End Date: Quit 15+years ago; Second Hand Exposure: No; Do You Dip or Chew Tobacco: No; Tobacco Cessation Education Requested by Patient: No Hx Alcohol Use: Yes Alcohol Intake Frequency: Monthly or Less Hx Substance Use: No Preferred Language: Belarusian Communication Ability: Effective Visual Impairment: No Limitations Hearing Ability: Hard of Hearing Camp Counselor Required: No Beliefs That Will Affect Care: None marital status: Single Current Living Situation: Family Current Living Situation Comment: Lives with mom current occupational status: employed Other Information That Helps Us Care for You: No Feels Safe at Home: Yes Safety Concerns: Feels Safe At This Time caffeine: Yes Dental Care, Regularly: Yes Physical Activity Frequency: 5-6 Times per Week Seatbelt Use: always Sunscreen Use: Yes Assistive Devices: Cane, CPAP and Glasses Assistive Devices Comment: reading/computer/driving glasses Physical Exam Physical Exam: Patient is alert and oriented Heart regular rhythm Lungs clear Results & Data Results & Data ([facility]) Vital Signs (Past 12 Hours) Vital Signs Temp Pulse Resp BP Pulse Ox O2 Del Method 09/22/22 11:14 36.8 C 74 18 134/62 98 Room Air
[2022-09-22] MEDS ORDERED: HYDROmorphone INJ 2 MG/ML SYR/VIAL ONE (12:28)
[2022-09-22] MEDS ORDERED: BUPIVACAINE/EPINEPHRINE 0.25% 1:200,000 30 ML VIAL ONE (12:29)
[2022-09-22] MEDS ORDERED: MIDAZOLAM HCL 1 MG/ML 2ML VIAL ONE (12:33)
[2022-09-22] MEDS ORDERED: ceFAZolin 330 MG/ML 1 GM VIAL ONE (12:36)
[2022-09-22] MEDS ORDERED: ALBUMIN HUMAN 5% 12.5 GM/250 ML VIAL IV ONE (12:57)
[2022-09-22] MEDS ORDERED: PROPOFOL IV EMULSION 10 MG/ML 20 ML VIAL IV ONE (13:11)
[2022-09-22] MEDS ORDERED: LIDOCAINE 2% MPF LOCAL 5 ML VIAL INFIL ONE (13:11)
[2022-09-22] MEDS ORDERED: ONDANSETRON INJ 2 MG/ML 2 ML VIAL ONE (13:11)
[2022-09-22] MEDS ORDERED: DEXAMETHASONE SOD INJ 4 MG/ML VIAL ONE (13:11)
[2022-09-22] MEDS ORDERED: ROCURONIUM BROMIDE 10 MG/ML 5 ML VIAL IV ONE (13:11)
[2022-09-22] MEDS ORDERED: fentaNYL citrate 100 MCG/2 ML VIAL IV PRN (13:18)
[2022-09-22] MEDS ORDERED: ATROPINE SULFATE 0.1 MG/ML 10ML SYR IV PRN (13:18)
[2022-09-22] MEDS ORDERED: HYDROmorphone INJ 2 MG/ML SYR/VIAL IV PRN (13:18)
[2022-09-22] MEDS ORDERED: PROMETHAZINE HCL 12.5 MG in SODIUM CHLORIDE 0.9% 50 ML IV PRN ×2 (13:18→18:01)
[2022-09-22] MEDS ORDERED: ONDANSETRON INJ 2 MG/ML 2 ML VIAL IV PRN ×2 (13:18→18:01)
[2022-09-22] MEDS ORDERED: ePHEDrine sulfate 50 MG/ML AMP IV PRN (13:18)
[2022-09-22] MEDS ORDERED: FLOSEAL HEMOSTATIC MATRIX 10ML TOP ONE (13:33)
--- NOTE | 2022-09-22 15:33 | Operative Report ---
Post Operative Report Pre & Post Diagnosis Operation Date: 09/22/22 12:45 Pre-Op Diagnosis: Spinal Stenosis, Lumbar Region with Neurogenic Claudication Post-Op Diagnosis: Spinal Stenosis, Lumbar Region with Neurogenic Claudication I identified the patient and participated in the time-out.: Yes Procedure Operation Date: 09/22/22 12:45 Actual Procedures #1 lumbar decompression with bilateral medial facetectomies and foraminotomies L2-L3, L3-L4, L4-L5 and L5-S1. #2 posterior spinal fusion L2-S1. #3 placement posterior segmental instrumentation L2-S1. #4 interbody fusion L3-L4, L4-L5 and L5-S1. #5 placement of Spira 10 x 26 mm cage at L3-L4, 14 x 26 mm cage at L4-5 and 13 x 26 mm cage at L5-S1. #6 placement of locally harvested morselized autograft in the posterior gutters. #7 placement I factor, V toss interbody space and posterior gutters. Surgeon Shaun Lopez, DO [employer] Rhiannon Yañez Estimated Blood Loss 550 Findings See Below The patient is 5 foot 6 weighing over 89 kg with a BMI in excess of 31. Patient's body habitus did add significant technical difficulty requiring her deepest retractors and longer instruments in order to perform her procedure. This had at least 50% increased operative time. Specimens None Indications This is a 61-year-old female who presents above-mentioned diagnosis after failing course of nonoperative care she is here for surgical intervention. Description of Procedure Patient met with identified informed consent obtained. Patient was then taken to the operative suite underwent a patient placed in a prone position jacks table top Baljinder frame. All bony prominences well-padded eyes inspected to e nsure no external pressure placed upon them. This point the lumbar spine was prepped and draped in normal sterile fashion. Sharp dissection with the assistance of bradycardia was performed down to and exposing the lamina and transverse processes of L2 L3-L4-L5 and sacral ala bilaterally. From caudal to cephalad fashion complete laminectomy L5 L4 L3 and L2 was performed including bilateral medial facetectomies and foraminotomies addressing severe spinal stenosis. Pedicle screws were then placed in L2 L3-L4-L5 and S1 levels bilaterally with assistance of fluoroscopy and appropriately sized isamar contoured and placed. By way of a transforaminal approach and right complete discectomy of L5-S1 was performed endplates curetted to subcortical any bone and a 13 x 26 mm spiral cage with I factor tapped in position. Then proceeded L4-L5 and again by way of a transforaminal approach on the right a complete discectomy performed endplates curetted to subcortical bleeding bone and a 14 x 26 mm spiral cage with I factor tapped in position. Lastly proceeded L3-L4 and again by way of a transforaminal approach on the right complete discectomy performed endplates curetted to subcortical being bone and a 10 x 26 mm spiral cage with I factor tapped in position. The rods were then locked into final position bilaterally. The transverse processes of L 2 L3-L4-L5 and the sacral ala burred to sub cortically bone. I factor combined with V toss and locally harvested morselized autograft placed in the posterior gutters. 15 round MCKINLEY drain inserted. Incision was then closed with 1 Vicryl the fascia 2-0 Vicryl subcutaneously and 4 Monocryl for final skin closure. Steri-Strip sterile dressings placed. Patient awakened and taken to PACU in stable condition. Please note spinal cord monitoring was utilized at the procedure no changes noted. Lastly Rhiannon Yañez was present at the entire surgeon while the patient positioning complex portions of the surgery and final skin closure. I attest to the content of the Intraoperative Record and any orders documented therein. Any exceptions are noted below.
--- NOTE | 2022-09-22 16:02 | Fluoroscopy Report ---
INTRAOPERATIVE RADIOGRAPHS CLINICAL HISTORY: L2-S1 spinal fusion. Fluoroscopy time: 42 seconds. FINDINGS: 3 spot fluoroscopic views of the lumbar spine are presented. There has been discectomy at L 3-L4, L4-L5, and L5-S1 with laminectomy and posterior fusion at L2-S1. Interpedicular screws are pres ent at all levels. The orthopedic hardware appears intact. IMPRESSION: Intraoperative images from lumbar spinal fusion surgery as above. Electronically signed by: Hussein Wild M.D. 09/22/2022 4:01 PM
[2022-09-22] MEDS ORDERED: PHARMACY GLYCEMIC MGMT CONSULT PRN (16:26)
[2022-09-22] MEDS ORDERED: INSULIN ASPART PER UNIT SC STA (16:31)
--- NOTE | 2022-09-22 16:33 | Anesthesiology Progress Note ---
Date of Service September 22, 2022 Anesthesia Post Procedure Vital Signs Vital Signs: Temp Pulse Pulse Resp BP Pulse Ox O2 Del Method 09/22/22 16:25 36.4 C L 77 19 102/60 95 Nasal Cannula 09/22/22 16:15 74 20 101/58 L 95 Oxymask 09/22/22 16:05 73 12 110/53 L 95 Oxymask 09/22/22 15:55 74 14 121/62 97 Oxymask 09/22/22 15:49 36.3 C L 73 17 102/58 L 96 Oxymask 09/22/22 11:14 36.8 C 74 18 134/62 98 Room Air O2 Flow Rate 09/22/22 16:25 2 09/22/22 16:15 3 09/22/22 16:05 5 09/22/22 15:55 10 09/22/22 15:49 10 09/22/22 11:14 Pain Intensity Back: Pain Intensity: 3 Transfer of Care Handoff Completed per policy Notes Mental Status: alert / awake / arousable Patient Amnestic to Procedure: Yes Nausea / Vomiting: adequately controlled Pain: adequately controlled Airway Patency, RR, SpO2: stable & adequate BP & HR: stable & adequate Hydration State: stable & adequate Anesthetic Complications: no major complications apparent and Pt Satisfied with anesthetic care Notes: The patient is awake and comfortable. Her vital signs are stable. Postop BSG is 239. She will be given Novolog 3 units SC. She will have inpatient pharmacy glucose management on the floor.
[2022-09-22] MEDS ORDERED: LORazepam 0.5 MG TAB PO PRN (18:01)
[2022-09-22] MEDS ORDERED: LACTATED RINGER'S 1,000 ML IV SCH (18:01)
[2022-09-22] MEDS ORDERED: ALUMINUM/MAGNESIUM SUSP 30 ML UDC PO PRN (18:01)
[2022-09-22] MEDS ORDERED: bisacodyL 10 MG SUPP PR PRN (18:01)
[2022-09-22] MEDS ORDERED: OXYBUTYNIN CHLORIDE 5 MG TAB PO PRN (18:01)
[2022-09-22] MEDS ORDERED: ALPRAZolam 0.5 MG TABLET PO PRN (18:01)
[2022-09-22] MEDS ORDERED: SOD PHOSPHATE/SOD BIPHOSPHATE ENEMA 132 ML BTL PR PRN (18:01)
[2022-09-22] MEDS ORDERED: hydrOXYzine HCl 25 MG TAB PO PRN (18:01)
[2022-09-22] MEDS ORDERED: ACETAMINOPHEN 500 MG TAB PO PRN (18:01)
[2022-09-22] MEDS ORDERED: FAMOTIDINE 20 MG TAB PO PRN (18:01)
[2022-09-22] MEDS ORDERED: HYDROmorphone INJ 0.5 MG/0.5 ML SYR IV PRN (18:01)
[2022-09-22] MEDS ORDERED: ACETAMINOPHEN 1,000 MG/100 ML VIAL IV PRN (18:01)
[2022-09-22] MEDS ORDERED: traMADol HCL 50 MG TABLET PO PRN (18:01)
[2022-09-22] MEDS ORDERED: LORazepam 0.5 MG in SYRINGE 0 ML IV PRN (18:01)
[2022-09-22] MEDS ORDERED: METOCLOPRAMIDE HCL INJ 5 MG/ML 2 ML VIAL IV PRN (18:01)
[2022-09-22] MEDS ORDERED: MAGNESIUM HYDROXIDE SUSP 30 ML UDC PO PRN (18:01)
[2022-09-22] MEDS ORDERED: HYOSCYAMINE SULFATE 0.125 MG TAB PO PRN (18:01)
[2022-09-22] MEDS ORDERED: diphenhydrAMINE Capsule 25 MG CAP PO PRN (18:01)
[2022-09-22] MEDS ORDERED: ONDANSETRON 4 MG OD TAB PO PRN (18:01)
[2022-09-22] MEDS ORDERED: HYDROmorphone INJ 1 MG/ML SYRINGE IV PRN (18:01)
[2022-09-22] MEDS ORDERED: NALOXONE HCL 0.4 MG/1 ML VIAL/CARP IV PRN (18:01)
[2022-09-22] MEDS ORDERED: DO NOT ADMINISTER FLU VACCINE PRN (18:01)
[2022-09-22] MEDS ORDERED: DO NOT ADMINISTER PNEUMOCOCCAL VACCINE PRN (18:01)
[2022-09-22] MEDS ORDERED: MELATONIN 3 MG TAB PO PRN (18:24)
[2022-09-22] MEDS ORDERED: SODIUM CHLORIDE 0.9% 1000ML 1,000 ML IV ONE (18:43)
[2022-09-22] MEDS ORDERED: CHECK CLONIDINE PATCH PLACEMENT SCH (18:45)
[2022-09-22] MEDS: SODIUM CHLORIDE 0.9% 1000ML 1,000 ML IV SCH (19:15)
--- NOTE | 2022-09-22 19:31 | Hospitalist Consultation ---
Date of Consultation September 22, 2022 Assessment & Plan (1) Lumbar degenerative disc disease: Angie Kingsley is a 61-year-old female with past medical history of chronic persistent back pain, bilateral leg pain, anxiety, hyperlipidemia, chronic constipation/IBS, DM 2, hypertension, GERD, history of CVA who was admitted under orthopedic service for surgical intervention for her chronic persistent back and bilateral leg pain after failed nonoperative course. Lumbar spinal stenosis/degenerative disc disease Underwent L2-S1 decompression and fusion today with orthopedics defer further management to primary service Decadron 6 mg IV daily per Ortho Antiemetics as needed Pain management per primary service with tramadol, oxycodone, Tylenol as needed DM2 Hold home metformin, empagliflozin Pharmacy glycemic consult placed by anesthesiology after procedure IBSC Continue home Amitiza, dicyclomine as needed, hyoscyamine as needed MiraLAX scheduled every 6 until achieve BM postoperatively, switch to as needed thereafter Senokot S 2 tabs at bedtime ordered currently, recommend discontinuing once BMs regular Dyslipidemia/hx CVA Continue atorvastatin 80 mg at bedtime Continue aspirin per orthopedics Hypertension Relatively hypotensive to low 90s over 50s after surgery, likely related to anesthesia and possibly volume down status Received 1.5 L NSS bolus, continue NSS at 100 cc/h for maintenance can discontinue once pressures stabilize and she is taking sufficient p.o. Hold home clonidine patch, lisinopril, labetalol, and spironolactone until pressure improves GERD/gastritis Continue pantoprazole 40 mg p.o. daily Anxiety Continue home duloxetine Hydroxyzine as needed for acute anxiety Will discontinue as needed Ativan for now and consider adding back if hydroxyzine not sufficient DVT prophylaxis: Currently ordered antiplatelet with aspirin, SCD's defer to primary service Diet: DM 2, clear liquids for dinner advance as tolerated Dispo: MedSurg, PT/OT consults CODE STATUS: Full (2) Lumbar spinal stenosis: (3) IBS (irritable bowel syndrome): (4) Hypertension: (5) Dyslipidemia: (6) Obstructive sleep apnea: (7) Type 2 diabetes mellitus: (8) Insomnia: Supervising Physician Co-Signing Physician Notes Patient seen and examined, chart reviewed case discussed wt Dr. Fernandez and I agree with the assessment and plan as above. In brief, patient is a 61yo female s/p L2-S1 decompression and fusion performed earlier today by Dr. Lopez. Procedure well tolerated. No complications. She did have a Clonidine patch on which has since been removed. Patient has had borderline low BPs since her arrival to the floor. Presently . She has no additional complaints On exam she is resting comfortably, NAD Skin - no rash HEENT - MMM ,Neck supple Heart - +S1/S2, regular, no m/r/g Lungs - CTA Abd - +BS, soft, NT/ND Labs and images reviewed Assessment/Plan -1L bolus then maintenance fluids -Hold antihypertensives for now -Clonidine patch removed -Monitor BP -Labs in AM -Remainder as above History of Present Illness Attending Physician: Shaun Lopez, DO History of Present Illness Angie Kingsley is a 61-year-old female with past medical history of chronic persistent back pain, bilateral leg pain, anxiety, hyperlipidemia, chronic constipation/IBS, DM 2, hypertension, GERD who was admitted under orthopedic service for surgical intervention for her chronic persistent back and bilateral leg pain after failed nonoperative course. Today she underwent L2-S1 decompression and fusion. She tolerated the procedure well and currently states her pain is well controlled. No nausea, vomiting, abdominal pain, chest pain, shortness of breath, palpitations, headache. Hospitalist service has been consulted for medical management. Patient did have some lower blood pressure readings post-operatively, presently . Allergies Allergy/AdvReac Type Severity Reaction Status Date / Time dulaglutide [From [facility]] Allergy Intermediate "Colitis Verified 09/22/22 11:03 attack" amlodipine Allergy Mild Rash Verified 09/22/22 11:03 latex Allergy Mild itchy Verified 09/22/22 11:03 cefaclor AdvReac Intermediate GI symptoms Verified 09/22/22 11:03 chlorthalidone AdvReac Intermediate Forceful Verified 09/22/22 11:03 urination and leg pain Home Medications Medication Instructions Recorded Confirmed Type coenzyme Q10 100 mg capsule 100 mg PO HS 07/01/19 09/22/22 History cinnamon bark 500 mg capsule 1,500 mg PO QAM 11/09/19 09/22/22 History (Cinnamon) CPAP Supplies #1 ea 07/26/20 09/10/22 Rx spironolactone 50 mg tablet 25 mg PO QAM #90 tabs 11/01/21 09/22/22 Rx aspirin 81 mg tablet,delayed 81 mg PO QAM 30 days #30 tabs 03/24/22 09/22/22 Rx release (Adrien Low Dose Aspirin) atorvastatin 40 mg tablet 80 mg PO HS #30 tabs 03/24/22 09/22/22 Rx dicyclomine 20 mg tablet 20 mg PO QAM PRN abdominal 03/28/22 09/22/22 Rx discomfort #30 tabs metformin 500 mg tablet,extended 500 mg PO HS 03/28/22 09/22/22 History release 24 hr empagliflozin 25 mg tablet 25 mg PO QAM #90 tabs 05/19/22 09/22/22 Rx labetalol 200 mg tablet 600 mg PO BID #540 tabs 06/20/22 09/22/22 Rx lisinopril 40 mg tablet 40 mg PO QAM #90 tabs 07/30/22 09/22/22 Rx chromium 1,000 mcg tablet 500 mcg PO QAM 08/27/22 09/22/22 History docusate sodium 100 mg capsule 100 mg PO UD PRN Constipation 08/27/22 09/22/22 History (Colace) duloxetine 60 mg capsule,delayed 60 mg PO QAM 08/27/22 09/22/22 History release hyoscyamine sulfate 0.125 mg tablet 0.125 mg PO DAILY PRN IBD 08/27/22 09/22/22 History melatonin 5 mg tablet 5 mg PO HS PRN Sleep 08/27/22 09/22/22 History multivitamin 1 tab PO QAM 08/27/22 09/22/22 History oxybutynin chloride 5 mg tablet 5 mg PO BID PRN cystitis 08/27/22 09/22/22 History Amitiza 8 mcg capsule 8 mcg PO BID IBS-C 90 days #180 09/02/22 09/22/22 Rx (lubiprostone) caps alprazolam 0.5 mg tablet 0.5 mg PO QPM PRN blood pressure 09/10/22 09/22/22 Rx spikes #30 tabs pantoprazole 40 mg tablet,delayed 40 mg PO DAILY gastritis and 09/10/22 09/22/22 History release (Protonix) erosions clonidine 0.3 mg/24 hr weekly 1 patch transdermal Q7D #12 ea 09/17/22 09/22/22 Rx transdermal patch Patient History Medical History Adrenal adenoma Anemia Dyslipidemia Hearing difficulty Hepatitis, autoimmune History of CVA (cerebrovascular accident) Irritable bowel syndrome (IBS) Lumbar degenerative disc disease Lumbar spinal stenosis Obstructive sleep apnea Pulmonary emphysema Renal cyst Resistant hypertension Stress incontinence in female Transient global amnesia Type 2 diabetes mellitus Surgical History History of appendectomy History of colonoscopy History of esophagogastroduodenoscopy (EGD) History of surgical removal of ganglion cyst History of tooth extraction History of wisdom tooth extraction S/P cholecystectomy S/P manipulation of deviated nasal septum Family History Mother Cervical cancer Atrial fibrillation Breast cancer Hypertension Father Hypertension Brother Diabetes Kidney disease Myocardial infarction Hypertension Other No family history of adverse response to anesthesia Denies family history of Ovarian cancer Prostate cancer Colorectal cancer Social History Smoking Status: Former smoker Tobacco Type: Cigarettes Age Started Using Tobacco: 19; Age Quit Using Tobacco: 49; Cigarettes Per Day: vaps periodically; Smoking End Date: Quit 15+years ago; Second Hand Exposure: No; Do You Dip or Chew Tobacco: No; Tobacco Cessation Education Requested by Patient: No Hx Alcohol Use: Yes Alcohol Intake Frequency: Monthly or Less Hx Substance Use: No Preferred Language: Estonian Communication Ability: Effective Visual Impairment: No Limitations Hearing Ability: Hard of Hearing Complex Human Resources Manager Required: No Beliefs That Will Affect Care: None marital status: Single Current Living Situation: Family Current Living Situation Comment: Lives with mom current occupational status: employed Other Information That Helps Us Care for You: No Feels Safe at Home: Yes Safety Concerns: Feels Safe At This Time caffeine: Yes Dental Care, Regularly: Yes Physical Activity Frequency: 5-6 Times per Week Seatbelt Use: always Sunscreen Use: Yes Assistive Devices: Cane, CPAP and Glasses Assistive Devices Comment: reading/computer/driving glasses Review of Systems Review of Systems: Per HPI Physical Exam Physical Exam: GENERAL: A&Ox3. NAD. HEENT: PERRL, EOMI. Moist mucous membranes. NECK: No JVD. No lymphadenopathy. CHEST/LUNGS: CTAB A/P. No crackles, wheezes, rales, rhonchi. HEART: RRR. No m/g/r. No carotid bruits. ABDOMEN: NT/ND, soft. BS+ x4 EXTREMITIES: No cyanosis, no clubbing, no edema SKIN: Warm and dry. No rashes or lesions. PSYCHIATRIC: Euthymic affect, no SI, no pressured speech, no hallucinations NEUROLOGIC: No FND. Results & Data Results & Data ([facility]) Vital Signs (Past 12 Hours) Vital Signs Temp Pulse Pulse Resp BP BP Pulse Ox 09/22/22 19:00 36.6 C 69 16 91/59 L 88/50 L 97 09/22/22 18:30 36.4 C L 73 14 90/56 L 99 09/22/22 18:00 36.7 C 75 14 101/65 98 09/22/22 17:45 72 12 100/59 L 97 09/22/22 17:30 72 12 97/56 L 96 09/22/22 17:15 74 18 85/48 L 96 09/22/22 17:00 72 12 96/56 L 94 09/22/22 16:45 72 12 98/56 L 95 09/22/22 16:35 71 14 107/56 L 96 09/22/22 16:25 36.4 C L 77 19 102/60 95 09/22/22 16:15 74 20 101/58 L 95 09/22/22 16:05 73 12 110/53 L 95 09/22/22 15:55 74 14 121/62 97 09/22/22 15:49 36.3 C L 73 17 102/58 L 96 09/22/22 11:14 36.8 C 74 18 134/62 98 O2 Del Method O2 Flow Rate 09/22/22 19:00 Nasal Cannula 1.0 09/22/22 18:30 Nasal Cannula 2 09/22/22 18:00 Nasal Cannula 2 09/22/22 17:45 Nasal Cannula 2 09/22/22 17:30 Nasal Cannula 2 09/22/22 17:15 Nasal Cannula 2 09/22/22 17:00 Nasal Cannula 2 09/22/22 16:45 Nasal Cannula 2 09/22/22 16:35 Nasal Cannula 2 09/22/22 16:25 Nasal Cannula 2 09/22/22 16:15 Oxymask 3 09/22/22 16:05 Oxymask 5 09/22/22 15:55 Oxymask 10 09/22/22 15:49 Oxymask 10 09/22/22 11:14 Room Air Laboratory Results Laboratory Results Hgb 9.6 g/dl (12.0-16.0) L 09/22/22 19:01 Hct 28.3 % (34.1-44.9) L 09/22/22 19:01 POC Glucose 186 mg/dl (70-99) H 09/22/22 20:40 SARS-CoV-2, RNA, NAAT NEGATIVE (NEGATIVE) 09/22/22 Unknown Blood Type A Negative 09/22/22 11:04 Antibody Screen NEGATIVE 09/22/22 11:04 Crossmatch See Detail 09/22/22 11:04 Impressions Lumbar Spine X-Ray 09/22/22 12:45 INTRAOPERATIVE RADIOGRAPHS CLINICAL HISTORY: L2-S1 spinal fusion. Fluoroscopy time: 42 seconds. FINDINGS: 3 spot fluoroscopic views of the lumbar spine are presented. There has been discectomy at L3-L4, L4-L5, and L5-S1 with laminectomy and posterior fusion at L2-S1. Interpedicular screws are present at all levels. The orthopedic hardware appears intact. IMPRESSION: Intraoperative images from lumbar spinal fusion surgery as above. Electronically signed by: Hussein Wild M.D. 09/22/2022 4:01 PM Resident Activity Tracking Resident Involvement: Resident Care Provided Care Provided: Adult Hospital Medicine (1) Hypertension Hypertension type: unspecified Qualified Code(s): I10 - Essential (primary) hypertension
[2022-09-22] MEDS ORDERED: DICYCLOMINE HCL 20 MG TAB PO PRN (19:51)
[2022-09-22] MEDS: LABETALOL HCL 300 MG TAB PO SCH (20:17)
[2022-09-22] MEDS: ATORVASTATIN 40 MG TAB PO SCH (20:19)
[2022-09-22] MEDS: LUBIPROSTONE 8 MCG CAP PO SCH (20:19)
[2022-09-22 20:41] LABS: Hematocrit (blood only) 28.3 % (34.1-44.9); Hemoglobin 9.6 g/dl (12.0-16.0)
[2022-09-22] MEDS ORDERED: NON-FORMULARY MEDICATION (Coenzyme Q10 100 mg capsule) PO SCH (21:00)
[2022-09-22] MEDS ORDERED: DOCUSATE SODIUM/SENNA 50/8.6MG TAB PO SCH (21:00)
--- NOTE | 2022-09-22 21:06 | Billing Data ---
Date of Service September 22, 2022 Coding Level of Care Code 87656 Inpt Consult Level 3
[2022-09-22] MEDS ORDERED: LANTUS PER UNIT CHARGE SQ ONE (21:15)
[2022-09-22] MEDS: INSULIN ASPART PER UNIT SC SCH (21:25)
[2022-09-22] MEDS: ceFAZolin 2000MG 2,000 MG/15 ML SYR IV SCH (22:33)
[2022-09-23] MEDS ORDERED: INSULIN ASPART PER UNIT SC SCH
[2022-09-23] MEDS: SODIUM CHLORIDE 0.9% 1000ML 1,000 ML IV SCH (03:05)
[2022-09-23] MEDS: POLYETHYLENE (MIRALAX) 17 GM PACK PO SCH ×3 (06:07→17:14)
[2022-09-23] MEDS: ceFAZolin 2000MG 2,000 MG/15 ML SYR IV SCH (06:08)
--- NOTE | 2022-09-23 08:05 | Hospitalist Progress Note ---
Date of Service September 23, 2022 Assessment & Plan (1) Lumbar degenerative disc disease: Plan: Angie Kingsley is a 61-year-old female with past medical history of chronic persistent back pain, bilateral leg pain, anxiety, hyperlipidemia, chronic constipation/IBS, DM 2, hypertension, GERD, history of CVA who was admitted under orthopedic service for surgical intervention for her chronic persistent back and bilateral leg pain after failed nonoperative course. Lumbar spinal stenosis/degenerative disc disease Underwent L2-S1 decompression and fusion today with orthopedics defer further management to primary service Decadron 6 mg IV daily per Ortho Antiemetics as needed Pain management per primary service with tramadol, oxycodone, Tylenol as needed DM2 Hold home metformin, empagliflozin Pharmacy glycemic consult placed by anesthesiology after procedure IBSC Continue home Amitiza, dicyclomine as needed, hyoscyamine as needed MiraLAX scheduled every 6 until achieve BM postoperatively, switch to as needed thereafter Senokot S 2 tabs at bedtime ordered currently, recommend discontinuing once BMs regular Dyslipidemia/hx CVA Continue atorvastatin 80 mg at bedtime Continue aspirin per orthopedics Resistant Hypertension Relatively hypotensive to low 90s over 50s after surgery, likely related to anesthesia and possibly volume down status Received 1.5 L NSS bolus, continue NSS at 100 cc/h for maintenance can discontinue once pressures stabilize and she is taking sufficient p.o. Home clonidine patch, lisinopril, labetalol on hold until pressure improves. Spironolactone resumed. GERD/gastritis Continue pantoprazole 40 mg p.o. daily Anxiety Continue home duloxetine Hydroxyzine as needed for acute anxiety Will discontinue as needed Ativan for now and consider adding back if hydroxyzine not sufficient DVT prophylaxis: Currently ordered antiplatelet with aspirin, SCD's defer to primary service Diet: DM 2, clear liquids for dinner advance as tolerated Dispo: MedSurg, PT/OT consults CODE STATUS: Full (2) Lumbar spinal stenosis: (3) IBS (irritable bowel syndrome): (4) Hypertension: (5) Dyslipidemia: (6) Obstructive sleep apnea: (7) Type 2 diabetes mellitus: (8) Insomnia: Admission and Anticipated Discharge Date Admission Date: September 22, 2022 Supervising Physician Co-Signing Physician Notes Resident Physician Supervision Note: I independently interviewed and examined the patient and verified the kimball history and physical, reviewed labs and image studies and agree with resident findings and care plan. Subjective No acute events overnight. Patient is up to chair. She has no acute complaints. She tolerated breakfast well. She is yet to work with physical therapy today. Review of Systems Review of Systems: All systems reviewed & are unremarkable except as noted in HPI & below Physical Exam Physical Exam: General: Well-appearing, alert, interactive, and in no acute distress. HEENT: Normocephalic, atraumatic. EOM intact. Good conjugate gaze. Nares patent. Moist mucosal membranes. Neck: Supple. No lymphadenopathy. Normal ROM. CV: Regular rate and rhythm. Normal S1 and S2. No murmurs gallops or rubs. Respiratory: Normal respiratory effort. Lungs clear to auscultation bilaterally. No crackles, rhonchi, or wheezes. Abdomen: Soft, nondistended abdomen. No bruits heard on auscultation. No tenderness to deep palpation. No guarding or rebound. Extremities: Capillary refill <2 sec. 2+ dp equal bilaterally. No pedal edema. Neuro: Alert and oriented x3. Skin: Surgical site clean, dry, and intact. No rashes, bruises, or erythema. Results & Data Results & Data ([facility]) Vital Signs (Past 12 Hours) Vital Signs Temp Pulse Resp BP BP Pulse Ox O2 Del Method 09/23/22 07:51 36.5 C 73 16 103/59 L 94 Room Air 09/23/22 02:11 36.8 C 83 16 117/72 94 Nasal Cannula 09/22/22 21:15 36.5 C 75 16 117/71 96 Nasal Cannula 09/22/22 20:07 36.7 C 81 16 91/59 L 95 Nasal Cannula O2 Flow Rate 09/23/22 07:51 09/23/22 02:11 1.0 09/22/22 21:15 1.0 09/22/22 20:07 1.0 Resident Activity Tracking Resident Involvement: Resident Care Provided Care Provided: Adult Hospital Medicine (1) Hypertension Hypertension type: unspecified Qualified Code(s): I10 - Essential (primary) hypertension
--- NOTE | 2022-09-23 08:20 | Orthopedic Progress Note ---
Date of Service September 23, 2022 Assessment & Plan (1) Lumbar spinal stenosis: Plan: At this time initiate physical therapy monitor her MCKINLEY operatively discharge home next few days pending OT PT evaluation. Admission and Anticipated Discharge Date Admission Date: September 22, 2022 Subjective Back pain is controlled leg symptoms markedly improved Physical Exam Physical Exam: Patient is in the chair at the bedside. She is comfortable. Is good strength testing. Results & Data ([facility]) Vital Signs (Past 12 Hours) Vital Signs Temp Pulse Resp BP BP Pulse Ox O2 Del Method 09/23/22 07:51 36.5 C 73 16 103/59 L 94 Room Air 09/23/22 02:11 36.8 C 83 16 117/72 94 Nasal Cannula 09/22/22 21:15 36.5 C 75 16 117/71 96 Nasal Cannula O2 Flow Rate 09/23/22 07:51 09/23/22 02:11 1.0 09/22/22 21:15 1.0
[2022-09-23] MEDS: DULoxetine HCL 60 MG CAP PO SCH (08:39)
[2022-09-23] MEDS: SPIRONOLACTONE 25 MG TAB PO SCH (08:40)
[2022-09-23] MEDS: PANTOprazole 40 MG TAB PO SCH (08:40)
[2022-09-23] MEDS: MULTIVITAMIN TAB PO SCH (08:40)
[2022-09-23] MEDS: dexAMETHasone 6 MG in SYRINGE 0 ML IV SCH (08:41)
[2022-09-23] MEDS: ASPIRIN 81 MG ECTAB PO SCH (08:41)
[2022-09-23] MEDS: LUBIPROSTONE 8 MCG CAP PO SCH ×2 (08:41→19:42)
[2022-09-23] MEDS: INSULIN ASPART PER UNIT SC SCH ×4 (08:44→21:50)
[2022-09-23] MEDS ORDERED: lisinopril 40 MG TAB PO SCH (09:00)
[2022-09-23] MEDS: oxyCODONE HCL IR 5 MG TAB (IMMEDIATE RELEASE) PO PRN (09:11)
[2022-09-23 10:02] LABS: Basophils # (auto) 0.04 K/uL (0-0.2); Basophils % (auto) 0.4 %; Eosinophils # (auto) 0.07 K/uL (0-0.50); Eosinophils % (auto) 0.6 %; Hematocrit (blood only) 29.4 % (34.1-44.9); Immature Granulocytes # (auto) 0.07 K/uL (0.00-0.02); Immature Granulocytes % (auto) 0.6 %; Lymphocytes # (auto) 1.66 K/uL (1.2-3.4); Lymphocytes % (auto) 15.4 %; Mean Corpuscular Hemoglobin 32.1 pg (25.0-34.0); Mean Corpuscular Volume 94.2 fL (80.0-100.0); Mean Platelet Volume 10.5 fL (9.4-12.3); Monocytes % (auto) 8.3 %; Neutrophils # (auto) 8.04 K/uL (1.4-6.5); Neutrophils % (auto) 74.7 %; Platelet Count 307 K/uL (130-400); RDW Coefficient of Variation 13.4 % (11.5-14.5); Red Blood Count 3.12 M/uL (3.93-5.22); White Blood Count 10.78 K/ul (4.8-10.8)
[2022-09-23 10:26] LABS: Anion Gap 6 (3-11); Blood Urea Nitrogen 22 mg/dl (6-23); Calcium 9.1 mg/dl (8.5-10.1); Carbon Dioxide 25 mmol/L (21-32); Chloride 105 mmol/L (98-107); Creatinine Clr Calc Pharmacy 59.6 ml/min; Est GFR (African American) 62.3 ml/min; Est GFR (Non-African American) 53.8 ml/min; Glucose 156 mg/dl (70-99(Fasting)); Sodium 136 mmol/L (136-145)
[2022-09-23] MEDS: LANTUS PER UNIT CHARGE SQ SCH ×2 (11:08→17:58)
[2022-09-23 11:31] LABS: Estimated Average Glucose 197 mg/dl; Hemoglobin A1C 8.5 % (4.5-5.6)
--- NOTE | 2022-09-23 12:58 | Pharmacy Report ---
Pharmacy Glycemic Short Note 2 - Date of Service September 23, 2022 - Glycemic Short BSG Results (Last 24 hours): 09/22/22 09/22/22 09/22/22 15:52 17:25 20:40 Glucose POC Glucose 239 H 231 H 186 H 09/23/22 09/23/22 09/23/22 08:02 09:06 12:02 Glucose 156 H POC Glucose 164 H 190 H OUTPATIENT ANTIDIABETIC REGIMEN: * Jardiance 25mg PO daily * Metformin 500mg PO qHS * HbA1c: 8.5% (09/23/22) ASSESSMENT: * Ms Kingsley is a 61yo diabetic F POD #1 s/p spinal procedure with Dr Lopez yesterday. * Pt is ordered several days of IV steroids (DXM 6mg IV daily), which is expected to contribute to steroid-induced hyperglycemia. * Pt initiated on SQ basal/bolus insulin regimen post-op yesterday. Will continue to follow and adjust as indicated. * Expect insulin requirements to cease/decrease once steroids are discontinued. PLAN FOR INPATIENT GLYCEMIC CONTROL: * Hold outpatient oral diabetes medications * Basal insulin * Lantus 15 units SQ daily * Additional Lantus SQ qPM, depending on BSG * Bolus insulin * NovoLog per scale ACHS or Q6hrs while NPO * Goal Range: Low 110 mg/dL - High 140 mg/dL * Correction Factor: 25 mg/dL/unit * Nutritional / Prandial insulin per carb ratio of 1 unit per 8 grams CHO consumed
[2022-09-23] MEDS: ATORVASTATIN 40 MG TAB PO SCH (19:41)
[2022-09-24] MEDS: POLYETHYLENE (MIRALAX) 17 GM PACK PO SCH ×4 (00:41→17:04)
[2022-09-24] MEDS: oxyCODONE HCL IR 5 MG TAB (IMMEDIATE RELEASE) PO PRN (02:32)
--- NOTE | 2022-09-24 08:13 | Hospitalist Progress Note ---
Date of Service September 24, 2022 Assessment & Plan (1) Lumbar degenerative disc disease: Plan: Angie Kingsley is a 61-year-old female with past medical history of chronic persistent back pain, bilateral leg pain, anxiety, hyperlipidemia, chronic constipation/IBS, DM 2, hypertension, GERD, history of CVA who was admitted under orthopedic service for surgical intervention for her chronic persistent back and bilateral leg pain after failed nonoperative course. Acute blood loss anemia - h/h stable postoperatively. hemodynamically stable Lumbar spinal stenosis/degenerative disc disease Underwent L2-S1 decompression and fusion today with orthopedics defer further management to primary service Decadron 6 mg IV daily per Ortho Antiemetics as needed Pain management per primary service with tramadol, oxycodone, Tylenol as needed DM2 Hold home metformin, empagliflozin Pharmacy glycemic consult placed by anesthesiology after procedure IBSC Continue home Amitiza, dicyclomine as needed, hyoscyamine as needed MiraLAX scheduled every 6 until achieve BM postoperatively, switch to as needed thereafter Senokot S 2 tabs at bedtime ordered currently, recommend discontinuing once BMs regular Dyslipidemia/hx CVA Continue atorvastatin 80 mg at bedtime Continue aspirin per orthopedics Resistant Hypertension Relatively hypotensive to low 90s over 50s after surgery, likely related to anesthesia and possibly volume down status Received 1.5 L NSS bolus, continue NSS at 100 cc/h for maintenance can discontinue once pressures stabilize and she is taking sufficient p.o. Home clonidine patch, lisinopril, labetalol on hold until pressure improves. Spironolactone resumed. GERD/gastritis Continue pantoprazole 40 mg p.o. daily Anxiety Continue home duloxetine Hydroxyzine as needed for acute anxiety Will discontinue as needed Ativan for now and consider adding back if hydroxyzine not sufficient DVT prophylaxis: Currently ordered antiplatelet with aspirin, SCD's defer to primary service Diet: DM 2, clear liquids for dinner advance as tolerated Dispo: MedSurg, PT/OT consults CODE STATUS: Full (2) Lumbar spinal stenosis: (3) IBS (irritable bowel syndrome): (4) Hypertension: (5) Dyslipidemia: (6) Obstructive sleep apnea: (7) Type 2 diabetes mellitus: (8) Insomnia: Admission and Anticipated Discharge Date Admission Date: September 22, 2022 Supervising Physician Co-Signing Physician Notes Resident Physician Supervision Note: I independently interviewed and examined the patient and verified the kimball history and physical, reviewed labs and image studies and agree with resident findings and care plan. Subjective Patient seated at bedside comfortably eating breakfast. She has no acute complaints this morning. She has been ambulating to and from the restroom on her own without difficulty. She also tolerated 2 long walks yesterday with assistance from nursing yesterday without difficulty. Review of Systems Review of Systems: All systems reviewed & are unremarkable except as noted in HPI & below Physical Exam Physical Exam: General: Well-appearing, alert, interactive, and in no acute distress. HEENT: Normocephalic, atraumatic. EOM intact. Good conjugate gaze. Nares patent. Moist mucosal membranes. Neck: Supple. No lymphadenopathy. Normal ROM. CV: Regular rate and rhythm. Normal S1 and S2. No murmurs gallops or rubs. Respiratory: Normal respiratory effort. Lungs clear to auscultation bilaterally. No crackles, rhonchi, or wheezes. Abdomen: Soft, nondistended abdomen. No bruits heard on auscultation. No tenderness to deep palpation. No guarding or rebound. Extremities: Capillary refill <2 sec. 2+ dp equal bilaterally. No pedal edema. Neuro: Alert and oriented x3. Skin: Surgical site clean, dry, and intact. No rashes, bruises, or erythema. Results & Data Results & Data ([facility]) Vital Signs (Past 12 Hours) Vital Signs Temp Pulse Resp BP Pulse Ox O2 Del Method 09/24/22 07:50 36.7 C 81 16 126/73 93 Room Air 09/23/22 20:49 36.7 C 80 16 141/74 H 94 Room Air Resident Activity Tracking Resident Involvement: Resident Care Provided Care Provided: Adult Hospital Medicine (1) Hypertension Hypertension type: unspecified Qualified Code(s): I10 - Essential (primary) hypertension
[2022-09-24] MEDS: LUBIPROSTONE 8 MCG CAP PO SCH ×2 (08:31→21:54)
[2022-09-24] MEDS: MULTIVITAMIN TAB PO SCH (08:31)
[2022-09-24] MEDS: PANTOprazole 40 MG TAB PO SCH (08:31)
[2022-09-24] MEDS: SPIRONOLACTONE 25 MG TAB PO SCH (08:31)
[2022-09-24] MEDS: DULoxetine HCL 60 MG CAP PO SCH (08:31)
[2022-09-24] MEDS: ASPIRIN 81 MG ECTAB PO SCH (08:32)
[2022-09-24] MEDS: dexAMETHasone 6 MG in SYRINGE 0 ML IV SCH (08:32)
[2022-09-24 08:45] LABS: Basophils # (auto) 0.06 K/uL (0-0.2); Basophils % (auto) 0.6 %; Eosinophils # (auto) 0.12 K/uL (0-0.50); Eosinophils % (auto) 1.2 %; Hematocrit (blood only) 26.8 % (34.1-44.9); Immature Granulocytes # (auto) 0.07 K/uL (0.00-0.02); Immature Granulocytes % (auto) 0.7 %; Lymphocytes # (auto) 2.94 K/uL (1.2-3.4); Mean Corpuscular Hemoglobin 31.8 pg (25.0-34.0); Mean Corpuscular Hgb Conc 33.6 g/dL (32.0-36.0); Mean Corpuscular Volume 94.7 fL (80.0-100.0); Mean Platelet Volume 9.8 fL (9.4-12.3); Monocytes # (auto) 0.85 K/uL (0.24-0.82); Monocytes % (auto) 8.7 %; Neutrophils # (auto) 5.75 K/uL (1.4-6.5); Neutrophils % (auto) 58.8 %; Platelet Count 270 K/uL (130-400); RDW Coefficient of Variation 13.3 % (11.5-14.5); RDW Standard Deviation 46.3 fL (36.4-46.3); Red Blood Count 2.83 M/uL (3.93-5.22); White Blood Count 9.79 K/ul (4.8-10.8)
[2022-09-24] MEDS ORDERED: cloNIDine HCL 0.3 MG/24 HR TRANSDERM SYS TD SCH (09:00)
[2022-09-24] MEDS: INSULIN ASPART PER UNIT SC SCH ×4 (09:48→21:52)
[2022-09-24] MEDS: LANTUS PER UNIT CHARGE SQ SCH ×2 (09:49→17:45)
--- NOTE | 2022-09-24 12:56 | Orthopedic Progress Note ---
Date of Service September 24, 2022 Assessment & Plan (1) Lumbar spinal stenosis: Plan: Continue physical therapy monitor MCKINLEY output hopefully discharge home in the next few days. Admission and Anticipated Discharge Date Admission Date: September 22, 2022 Subjective Patient is back pain is controlled leg symptoms markedly improved Physical Exam Physical Exam: Patient is in the chair at the bedside. Is good strength testing. Appears comfortable. Results & Data ([facility]) Vital Signs (Past 12 Hours) Vital Signs Temp Pulse Resp BP Pulse Ox O2 Del Method 09/24/22 09:15 Room Air 09/24/22 07:50 36.7 C 81 16 126/73 93 Room Air
[2022-09-24] MEDS ORDERED: GLUCAGON FOR INJ 1 MG VIAL IM PRN (15:15)
[2022-09-24] MEDS ORDERED: CARBOHYDRATES FOR HYPOGLYCEMIA PO PRN (15:15)
[2022-09-24] MEDS ORDERED: DEXTROSE 50% 50 ML SYRINGE IV PRN (15:15)
[2022-09-24] MEDS ORDERED: GLUCOSE 40% GEL 15 GM TUBE PO PRN (15:15)
[2022-09-24] MEDS ORDERED: GLUCOSE 10 TAB/TUBE PO PRN (15:15)
[2022-09-24] MEDS ORDERED: OXYBUTYNIN CHLORIDE 5 MG TAB PO STA (17:07)
[2022-09-24] MEDS: ATORVASTATIN 40 MG TAB PO SCH (21:54)
[2022-09-25] MEDS: POLYETHYLENE (MIRALAX) 17 GM PACK PO SCH ×5 (00:12→23:25)
[2022-09-25] MEDS: LANTUS PER UNIT CHARGE SQ SCH (08:56)
[2022-09-25] MEDS: INSULIN ASPART PER UNIT SC SCH ×4 (08:56→20:23)
[2022-09-25] MEDS: ASPIRIN 81 MG ECTAB PO SCH (08:57)
[2022-09-25] MEDS: MULTIVITAMIN TAB PO SCH (08:57)
[2022-09-25] MEDS: dexAMETHasone 6 MG in SYRINGE 0 ML IV SCH (08:57)
[2022-09-25] MEDS: DULoxetine HCL 60 MG CAP PO SCH (08:57)
[2022-09-25] MEDS: PANTOprazole 40 MG TAB PO SCH (08:57)
[2022-09-25] MEDS: SPIRONOLACTONE 25 MG TAB PO SCH (08:57)
[2022-09-25] MEDS: LUBIPROSTONE 8 MCG CAP PO SCH ×2 (08:57→20:17)
--- NOTE | 2022-09-25 09:31 | Hospitalist Progress Note ---
Date of Service September 25, 2022 Assessment & Plan (1) Lumbar degenerative disc disease: Plan: Angie Kingsley is a 61-year-old female with past medical history of chronic persistent back pain, bilateral leg pain, anxiety, hyperlipidemia, chronic constipation/IBS, DM 2, hypertension, GERD, history of CVA who was admitted under orthopedic service for surgical intervention for her chronic persistent back and bilateral leg pain after failed nonoperative course. Acute blood loss anemia - h/h stable postoperatively. hemodynamically stable Lumbar spinal stenosis/degenerative disc disease Underwent L2-S1 decompression and fusion today with orthopedics defer further management to primary service Decadron 6 mg IV daily per Ortho Antiemetics as needed Pain management per primary service with tramadol, oxycodone, Tylenol as needed DM2 Hold home metformin, empagliflozin Pharmacy glycemic consult placed by anesthesiology after procedure IBSC Continue home Amitiza, dicyclomine as needed, hyoscyamine as needed MiraLAX scheduled every 6 until achieve BM postoperatively, switch to as needed thereafter Senokot S 2 tabs at bedtime ordered currently, recommend discontinuing once BMs regular Dyslipidemia/hx CVA Continue atorvastatin 80 mg at bedtime Continue aspirin per orthopedics Resistant Hypertension Relatively hypotensive to low 90s over 50s after surgery, likely related to anesthesia and possibly volume down status Received NSS. BP now rising. resume labetolol and lisinopril. Home clonidine patch. Spironolactone resumed 09/24. GERD/gastritis Continue pantoprazole 40 mg p.o. daily Anxiety Continue home duloxetine Hydroxyzine as needed for acute anxiety Will discontinue as needed Ativan for now and consider adding back if hydroxyzine not sufficient DVT prophylaxis: Currently ordered antiplatelet with aspirin, SCD's defer to primary service Diet: DM 2, clear liquids for dinner advance as tolerated Dispo: MedSurg, PT/OT consults CODE STATUS: Full (2) Lumbar spinal stenosis: (3) IBS (irritable bowel syndrome): (4) Hypertension: (5) Dyslipidemia: (6) Obstructive sleep apnea: (7) Type 2 diabetes mellitus: (8) Insomnia: Admission and Anticipated Discharge Date Admission Date: September 22, 2022 Supervising Physician Co-Signing Physician Notes Resident Physician Supervision Note: I independently interviewed and examined the patient and verified the kimball history and physical, reviewed labs and image studies and agree with resident findings and care plan. Subjective No acute events overnight. Patient has no complaints. Continues to ambulate to and from the bathroom without assistance and without difficulty. Review of Systems Review of Systems: All systems reviewed & are unremarkable except as noted in HPI & below Physical Exam Physical Exam: General: Well-appearing, alert, interactive, and in no acute distress. HEENT: Normocephalic, atraumatic. EOM intact. Good conjugate gaze. Nares patent. Moist mucosal membranes. Neck: Supple. No lymphadenopathy. Normal ROM. CV: Regular rate and rhythm. Normal S1 and S2. No murmurs gallops or rubs. Respiratory: Normal respiratory effort. Lungs clear to auscultation bilaterally. No crackles, rhonchi, or wheezes. Abdomen: Soft, nondistended abdomen. No bruits heard on auscultation. No tenderness to deep palpation. No guarding or rebound. Extremities: Capillary refill <2 sec. 2+ dp equal bilaterally. No pedal edema. Neuro: Alert and oriented x3. Skin: Surgical site clean, dry, and intact. No rashes, bruises, or erythema. Results & Data Results & Data ([facility]) Vital Signs (Past 12 Hours) Vital Signs Temp Pulse Resp BP BP Pulse Ox O2 Del Method 09/25/22 07:42 36.6 C 71 16 155/88 H 95 Room Air 09/24/22 22:53 36.9 C 90 16 143/83 H 96 Room Air Resident Activity Tracking Resident Involvement: Resident Care Provided Care Provided: Adult Hospital Medicine (1) Hypertension Hypertension type: unspecified Qualified Code(s): I10 - Essential (primary) hypertension
--- NOTE | 2022-09-25 09:38 | Pharmacy Report ---
Pharmacy Glycemic Short Note 2 - Date of Service September 25, 2022 - Glycemic Short BSG Results (Last 24 hours): 09/24/22 09/24/22 09/24/22 11:50 17:01 20:45 POC Glucose 168 H 205 H 158 H 09/25/22 08:24 POC Glucose 143 H OUTPATIENT ANTIDIABETIC REGIMEN: * Jardiance 25mg PO daily * Metformin 500mg PO qHS * HbA1c: 8.5% (09/23/22) ASSESSMENT: 09/25: * BSGs 168-205-158 the last 24h, and fasting within goal at 143mg/dL this AM. Received 30 units of basal and 11 units of bolus insulin yesterday. * Continues on dexamethasone 6mg IV daily (to d/c after today's dose), and tolerating diet. * No change to basal today- 15 units this AM and plan for scale HS. Will need to reassess need for ongoing basal in AM. No change to Novolog. 09/23 * Ms Kingsley is a 61yo diabetic F POD #1 s/p spinal procedure with Dr Lopez yesterday. * Pt is ordered several days of IV steroids (DXM 6mg IV daily), which is expected to contribute to steroid-induced hyperglycemia. * Pt initiated on SQ basal/bolus insulin regimen post-op yesterday. Will continue to follow and adjust as indicated. * Expect insulin requirements to cease/decrease once steroids are discontinued. PLAN FOR INPATIENT GLYCEMIC CONTROL: * Hold outpatient oral diabetes medications * Basal insulin * Lantus 15 units SQ daily * Lantus HS per scale * Bolus insulin * NovoLog per scale ACHS or Q6hrs while NPO * Goal Range: Low 110 mg/dL - High 140 mg/dL * Correction Factor: 25 mg/dL/unit * Nutritional / Prandial insulin per carb ratio of 1 unit per 8 grams CHO consumed
--- NOTE | 2022-09-25 10:53 | Orthopedic Progress Note ---
Date of Service September 25, 2022 Assessment & Plan (1) Lumbar spinal stenosis: Plan: At this time we will continue physical therapy monitor MCKINLEY output anticipate discharge home tomorrow. Admission and Anticipated Discharge Date Admission Date: September 22, 2022 Subjective Patient's back pain is controlled leg pain improved Physical Exam Physical Exam: Patient is up and ambulating halls well. She is comfortable. Results & Data ([facility]) Vital Signs (Past 12 Hours) Vital Signs Temp Pulse Resp BP Pulse Ox O2 Del Method 09/25/22 07:42 36.6 C 71 16 155/88 H 95 Room Air
[2022-09-25] MEDS: ATORVASTATIN 40 MG TAB PO SCH (20:17)
[2022-09-25] MEDS: LABETALOL HCL 300 MG TAB PO SCH (20:22)
[2022-09-25] MEDS ORDERED: LANTUS PER UNIT CHARGE SQ SCH (21:00)
[2022-09-26] MEDS: POLYETHYLENE (MIRALAX) 17 GM PACK PO SCH (05:52)
--- NOTE | 2022-09-26 08:46 | Hospitalist Progress Note ---
Date of Service September 26, 2022 Assessment & Plan (1) Lumbar degenerative disc disease: Plan: Angie Kingsley is a 61-year-old female with past medical history of chronic persistent back pain, bilateral leg pain, anxiety, hyperlipidemia, chronic constipation/IBS, DM 2, hypertension, GERD, history of CVA who was admitted under orthopedic service for surgical intervention for her chronic persistent back and bilateral leg pain after failed nonoperative course. Acute blood loss anemia - h/h stable postoperatively. hemodynamically stable Lumbar spinal stenosis/degenerative disc disease Underwent L2-S1 decompression and fusion today with orthopedics per ortho DM2 resume home metformin, empagliflozin on discharge blood sugars overall controlled without any long acting insulin while in hospital. IBSC Continue home Amitiza, dicyclomine as needed, hyoscyamine as needed Bowel regimen as needed Dyslipidemia/hx CVA Continue atorvastatin 80 mg at bedtime Continue aspirin per orthopedics Resistant Hypertension Post op hypotension to low 90s over 50s after surgery, likely related to anesthesia and possibly volume down status Received NSS. BP meds were held. Resumed labetolol and lisinopril spironolactone on discharge. Instructed to resume clonidine patch based on home BP readings. GERD/gastritis Continue pantoprazole 40 mg p.o. daily Anxiety Continue home duloxetine Hydroxyzine as needed for acute anxiety (2) Lumbar spinal stenosis: (3) IBS (irritable bowel syndrome): (4) Hypertension: (5) Dyslipidemia: (6) Obstructive sleep apnea: (7) Type 2 diabetes mellitus: (8) Insomnia: Admission and Anticipated Discharge Date Admission Date: September 22, 2022 Supervising Physician Co-Signing Physician Notes Resident Physician Supervision Note: I independently interviewed and examined the patient and verified the kimball history and physical, reviewed labs and image studies and agree with resident findings and care plan. Subjective No acute events overnight. Patient continues to ambulate without difficulty to and from the restroom. She continues to tolerate long walks around the unit with assistance from PT, nursing. She has no acute complaints. Review of Systems Review of Systems: All systems reviewed & are unremarkable except as noted in HPI & below Physical Exam Physical Exam: General: Well-appearing, alert, interactive, and in no acute distress. HEENT: Normocephalic, atraumatic. EOM intact. Good conjugate gaze. Nares patent. Moist mucosal membranes. Neck: Supple. No lymphadenopathy. Normal ROM. CV: Regular rate and rhythm. Normal S1 and S2. No murmurs gallops or rubs. Respiratory: Normal respiratory effort. Lungs clear to auscultation bilaterally. No crackles, rhonchi, or wheezes. Abdomen: Soft, nondistended abdomen. No bruits heard on auscultation. No tenderness to deep palpation. No guarding or rebound. Extremities: Capillary refill <2 sec. 2+ dp equal bilaterally. No pedal edema. Neuro: Alert and oriented x3. Skin: Surgical site clean, dry, and intact. No rashes, bruises, or erythema. Results & Data Results & Data ([facility]) Vital Signs (Past 12 Hours) Vital Signs Temp Pulse Resp BP Pulse Ox O2 Del Method 09/26/22 07:33 36.7 C 66 16 139/75 94 Room Air Resident Activity Tracking Resident Involvement: Resident Care Provided Care Provided: Adult Hospital Medicine (1) Hypertension Hypertension type: unspecified Qualified Code(s): I10 - Essential (primary) hypertension
[2022-09-26] MEDS: MULTIVITAMIN TAB PO SCH (08:57)
[2022-09-26] MEDS: DULoxetine HCL 60 MG CAP PO SCH (08:57)
[2022-09-26] MEDS: SPIRONOLACTONE 25 MG TAB PO SCH (08:58)
[2022-09-26] MEDS: LABETALOL HCL 300 MG TAB PO SCH (08:58)
[2022-09-26] MEDS: PANTOprazole 40 MG TAB PO SCH (08:58)
[2022-09-26] MEDS: LUBIPROSTONE 8 MCG CAP PO SCH (08:59)
[2022-09-26] MEDS: ASPIRIN 81 MG ECTAB PO SCH (08:59)
[2022-09-26] MEDS: INSULIN ASPART PER UNIT SC SCH (09:04)
--- NOTE | 2022-09-26 12:32 | Discharge Summary ---
Date of Service September 26, 2022 Admission HPI Per Admitting Provider This is a 61-year-old female presents with chronic persistent back and bilateral leg pain. Failing course of nonoperative care she is here for surgical invention. Principal Diagnosis Lumbar spinal stenosis with neurogenic claudication Discharge Data Allergies Allergy/AdvReac Type Severity Reaction Status Date / Time dulaglutide [From Trulicity] Allergy Intermediate "Colitis Verified 09/22/22 11:03 attack" amlodipine Allergy Mild Rash Verified 09/22/22 11:03 latex Allergy Mild itchy Verified 09/22/22 11:03 cefaclor AdvReac Intermediate GI symptoms Verified 09/22/22 11:03 chlorthalidone AdvReac Intermediate Forceful Verified 09/22/22 11:03 urination and leg pain Consultations 09/22/22 18:01 Consult Hospitalist Routine Procedures Performed Operation Date: 09/22/22 12:45 Actual Procedures p L2-S1 Decompression and Fusion, Interbody Fusion L3-L4, L4-L5, L5-S1, Spinal Cord Monitoring(Not Applicable) - Shaun Lopez DO Ordered Studies 09/22/22 12:45 FL lumbar spine 2-3V Routine Hospital Course (1) Lumbar spinal stenosis: Patient went multilevel lumbar decompression fusion tolerated this well was taken to the orthopedic floor postoperative. Postop day she progressed appropriately throughout her hospital stay. MCKINLEY drain decreasing appropriate. Excellent strength testing. Socially discharged home. Discharge orders instructions from the chart of further view. Total Time Total Time Spent Total Time Spent (In Minutes): 20 minutes Discharge Plan Discharge Items Patient Disposition: Home - Self-Care Reason For Visit: Spinal Stenosis, Lumbar Region with Neurogenic Cla Discharge Diagnosis: Lumbar spinal stenosis with neurogenic claudication Activity: As commented below Non-emergency contact: Primary Care Provider Call non-emergency contact if: you have any medication questions Follow-up/Referrals: Ree Cotton DO [Primary Care Provider] - Diet: Regular Addtl Attending Provider Instructions: ACTIVITY RECOMMENDATIONS: SELF CARE INSTRUCTIONS AFTER THORACIC/LUMBAR FUSIONS 1. You may walk to your tolerance. It is good exercise for your legs and back. Expect some back and intermittent leg aches and pains. 2. You may perform "counter-top" level activities (make a sandwich, damien with a project, etc.). 3. No bending or lifting of more than 10 pounds or back twisting of any nature (roll like a log when turning in bed). 4. You may ride in a car for 20-30 minutes at a time. No driving until after your first visit with your doctor. 5. Frequent changes of position and restricting sitting to 30 minutes at a time will help limit the amount of back spasms and stiffness you may experience. 6. You may discontinue the use of ambulatory aids (cane, crutches, etc.) once your strength and confidence allow. 7. You may senior marketing specialist the shower and let water strike your incision when you arrive home at least once daily. Do not take a tub bath, sit in a hot tub or go into a swimming pool until after your first recheck in the office. SPECIAL CARE INSTRUCTIONS: VERY IMPORTANT TO READ AND REVIEW A. Your surgical incision has been closed with a cosmetic suture under the skin that will dissolve in about 6 weeks. In 14 days, you can use a pair of clean scissors and cut the suture that is left outside of the skin at the ends of your incision. 1. The small skin tapes can be removed 7 days after surgery if they have not fallen off by that point. 2. You may keep the wound open to air as much as possible to promote healing after post-op day number 5 unless told otherwise by your doctor. 3. If you think the wound looks like it is becoming infected (redness or worsening drainage) and/or you are experiencing fever, chill or worsening back pain and muscle spasms, contact the office so that we may evaluate you as soon as possible. B. Complications are uncommon, but please contact us if you have any signs or symptoms of: 1. wound infection (fever higher than 102.5 degrees F, redness, separation of wound, drainage, or increasing pain from the incision) 2. blood clots in legs (pain, swelling, redness and warmth in legs) 3. urinary tract infection (fever higher than 102.5 degrees F, burning upon urination or increased frequency of urination) 4. nerve problems (inability to walk on your toes or heels, numbness, loss of bowel or bladder control) 5. any other symptoms that concern you C. Please call the office at if you have any concerns or questions about your operation or recovery. D. No smoking! Smoking drastically decreases the chance of a solid fusion. E. Do not take any anti-inflammatory medications (Indocin, Advil, Motrin, Aspirin, Naprosyn, etc.) as these may inhibit the chance of a solid fusion. Tylenol is okay to take for pain. MANAGING PAIN AFTER SPINAL SURGERY 1. Narcotic medication is intended for short-term use and will be provided for surgical pain. Surgical pain usually lasts for a period of 4-6 weeks. Narcotic medication includes Percocet, Vicodin, Darvocet, Tylenol #3 or Lortab. 2. Longer-term pain is more appropriately treated with non-narcotic medication such as Tylenol ES. 3. Muscle spasm is not appropriately treated with narcotics. Muscle relaxers such as Soma, Flexeril or Skelaxin can be used along with Tylenol ES. 4. Remember that we all live with some "aches and pains". This is not unusual or uncommon after an injury or as we get older. a. Back pain is expected and may include muscle spasms for 4 to 6 weeks after surgery. The pain should gradually improve. If the pain worsens for no apparent reason, please contact the office. b. Intermittent leg pain may also be experienced and should not be concerned about unless it worsens for no apparent reason. If so, please contact the office. 5. We will provide appropriate medication within the normal guidelines of their prescribed use. We will also be very cautious and aware of potential abuse and extended duration of patients' medication needs. a. Pain medications are for your comfort and to assist with sleep and rest so that the tissue can heal. They are not provided in order to return to normal activity and should not be used through the day. To do so or worsening pain at night can result from ongoing tissue damage and development of tolerance to the prescribed medicine. 6. Please allow 2-3 days to process refills. Prescriptions will not be mailed but must be picked up at the office. FOLLOW UP VISIT: Keep your scheduled follow-up appointment. Any questions, please call the office at . Pending Studies at Discharge: No Stand-Alone Forms: My [facility] BetterLesson, Pain - Opioid Pain Management, Smoking Cessation Medications and DC Order Prescriptions: New tramadol 50 mg tablet 50 mg PO Q6H PRN (Reason: pain, moderate) Qty: 30 0RF oxycodone 5 mg tablet 5 mg PO Q6H PRN (Reason: pain, severe) Qty: 30 0RF Continued spironolactone 50 mg tablet 25 mg PO QAM Qty: 90 3RF empagliflozin 25 mg tablet 25 mg PO QAM Qty: 90 1RF labetalol 200 mg tablet 600 mg PO BID Qty: 540 1RF lisinopril 40 mg tablet 40 mg PO QAM Qty: 90 1RF clonidine 0.3 mg/24 hr patch weekly 1 patch transdermal Q7D Qty: 12 3RF Label Comments: changes on fridays (DME) CPAP Supplies Misc See Rx Instructions .ROUTE .MEDSUPPLY Qty: 1 0RF Rx Instructions: Patient uses [facility] but is not getting supplies. Please provide appropriate mask, filters, hosing, and supplies metformin 500 mg tablet extended release 24 hr 500 mg PO HS Rx Instructions: Regular ER, no OSM or MOD dicyclomine 20 mg tablet 20 mg PO QAM PRN (Reason: abdominal discomfort) Qty: 30 0RF pantoprazole [Protonix] 40 mg tablet,delayed release (DR/EC) 40 mg PO DAILY Label Comments: may be completed with this therapy by 09/22. alprazolam 0.5 mg tablet 0.5 mg PO QPM PRN (Reason: blood pressure spikes) Qty: 30 0RF lubiprostone [Amitiza] 8 mcg capsule 8 mcg PO BID 90 Days Qty: 180 3RF Label Comments: 07/25/21 pt states she has not started med yet coenzyme Q10 100 mg capsule 100 mg PO HS cinnamon bark [Cinnamon] 500 mg capsule 1,500 mg PO QAM atorvastatin 40 mg tablet 80 mg PO HS Qty: 30 3RF aspirin [Adrien Low Dose Aspirin] 81 mg tablet,delayed release (DR/EC) 81 mg PO QAM 30 Days Qty: 30 3RF chromium 1,000 mcg Tablet 500 mcg PO QAM hyoscyamine sulfate 0.125 mg tablet 0.125 mg PO DAILY PRN (Reason: IBD) duloxetine 60 mg capsule,delayed release(DR/EC) 60 mg PO QAM multivitamin Tablet 1 tab PO QAM docusate sodium [Colace] 100 mg Capsule 100 mg PO UD PRN (Reason: Constipation) oxybutynin chloride 5 mg Tablet 5 mg PO BID PRN (Reason: cystitis) Label Comments: only takes once in awhile melatonin 5 mg Tablet 5 mg PO HS PRN (Reason: Sleep) Discharge Orders: Discharge Order (Routine); Ordered 09/26/22 Ordered By: Shaun Prater/Other Patient Handouts: Managing Type 2 Diabetes Admission Data Admit Date/Time: 09/22/22 15:38 Attending Provider: Shuan Lopez Admit Provider: Shaun Lopez Primary Care Provider: Ree Cotton Other Providers: Drake Torre ; Risa Toledo Other Interventions: Discharge Summary Assessment (RN) Last Done: 09/26/22 11:12
== END 2022-09-26 11:43 | disposition home or self-care (01) | DRG 454 ==
LOC: ASU 10:44 → PACUINP 15:38 → 3E 18:09